=== PATIENT | female | born 1985 | race Caucasian/White ===

== ENCOUNTER 2016-06-27 10:02 | Emergency (ER) | payer BC ==
[2016-06-27] MEDS ORDERED: diPHENhydraMINE PO* 50 MG PO ONE (11:04)
[2016-06-27 11:35] VITALS: BP 106/62
--- NOTE | 2016-06-27 11:37 | ED ---
Skin Complaint - HPI Summary HPI Summary: Patient presents with concerns that she is having an allergic reaction. She noticed redness on her palms with mild itching this morning and then thought she felt like her "tonsils were swollen". She thinks that she sees blisters on her palms as well. She denies SOB, difficulty breathing, nausea or abdominal pain. She denies known exposure to new lotions, detergents, foods, soaps or cleansers. 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 - History of Current Complaint Chief Complaint: EDAllergicReaction Time Seen by Provider: 06/27/16 10:17 Stated Complaint: ALLERGIC REACTION Hx Obtained From: Patient Hx Last Menstrual Period: unknown Onset/Duration: Started Hours Ago Timing: Constant Onset Severity: Mild Current Severity: Mild Pain Intensity: 0 Skin Location: Hand - bilateral Character: Pruritus, Redness Aggravating Symptom(s): Nothing Alleviating Symptom(s): Nothing - Allergy/Home Medications Allergies/Adverse Reactions: Allergies Allergy/AdvReac Type Severity Reaction Status Date / Time No Known Allergies Allergy Verified 06/27/16 10:07 PMH/Surg Hx/FS Hx/Imm Hx Endocrine/Hematology History: Denies: Hx Diabetes, Hx Thyroid Disease Cardiovascular History: Denies: Hx Hypertension, Hx Pacemaker/ICD Respiratory History: Reports: Hx Seasonal Allergies Denies: Hx Asthma, Hx Chronic Obstructive Pulmonary Disease (COPD) GI History: Reports: Hx Irritable Bowel Denies: Hx Ulcer History: Denies: Hx Renal Disease Musculoskeletal History: Reports: Hx Back Problems - hx of chronic back pain Sensory History: Reports: Hx Contacts or Glasses Denies: Hx Hearing Aid Opthamlomology History: Reports: Hx Contacts or Glasses Neurological History: Reports: Hx Migraine Denies: Hx Dementia, Hx Seizures Psychiatric History: Reports: Hx Anxiety, Hx Depression, Hx Inpatient Treatment , Hx Community Mental Health Tx, Hx Suicide Attempt Denies: Hx Eating Disorder, Hx Panic Disorder, Hx of Violent Episodes Against Others, Hx Substance Abuse - Surgical History Surgery Procedure, Year, and Place: TUBES IN EARS CHILD. RIGHT HP SURGERY - TENDON ELONGATED & JOINT CLEANED-UP. 03/2013 explor lap - endometriosis diagnosed. Hysterectomy 03/15/14 Infectious Disease History: No Infectious Disease History: Denies: Hx Clostridium Difficile, Hx Hepatitis, Hx Human Immunodeficiency Virus (HIV), Hx of Known/Suspected MRSA, Hx Shingles, Hx Tuberculosis, Hx Known/ Suspected VRE, Hx Known/Suspected VRSA, History Other Infectious Disease, Traveled Outside the [place] in Last 30 Days - Family History Known Family History: Positive: Unknown, Cardiac Disease, Hypertension, Diabetes , Other - CHOLESTEROL - Social History Occupation: Employed Full-time Lives: Alone Alcohol Use: Rare Substance Use Type: Reports: None Substance Use Comment - Amount & Last Used: patient denies street drugs and marijuana use. percocet. Smoking Status (MU): Former Smoker Type: Cigarettes Amount Used/How Often: quit in 2011 Length of Time of Smoking/Using Tobacco: 6 years Have You Smoked in the Last Year: No Review of Systems Negative: Fever Negative: Erythema Negative: Chest Pain Negative: Shortness Of Breath Negative: Vomiting, Nausea Negative: Edema Negative: Rash, Bruising Negative: Headache, Weakness All Other Systems Reviewed And Are Negative: Yes Physical Exam Triage Information Reviewed: Yes Vital Signs On Initial Exam: Initial Vitals Temp Pulse Resp BP Pulse Ox 97.0 F 63 16 132/63 100 06/27/16 10:03 06/27/16 10:03 06/27/16 10:03 06/27/16 10:03 06/27/16 10:03 Vital Signs Reviewed: Yes Appearance: Positive: Well-Appearing, No Pain Distress, Obese Skin: Positive: Warm, Skin Color Reflects Adequate Perfusion, Dry, Soft, Erythema @ - minimal erythema noted on palms without hives, blisters, or streaking. Skin is completely intact. No other erythema noted. Head/Face: Positive: Normal Head/Face Inspection Eyes: Positive: EOMI, CHARLES, Conjunctiva Clear ENT: Positive: Hearing grossly normal, Pharynx normal - uvula is midline without edema; tonsils are symmetric without obvious edema and airway is open. Patient O2 saturation 100%. Patient is not in distress., TMs normal. Negative: Pharyngeal erythema, Tonsillar swelling Neck: Positive: Supple, Nontender, No Lymphadenopathy Respiratory/Lung Sounds: Positive: Clear to Auscultation, Breath Sounds Present Cardiovascular: Positive: RRR Musculoskeletal: Negative: Edema Left, Edema Right Neurological: Positive: Sensory/Motor Intact, Alert, Oriented to Person Place, Time, NV Bundle Intact Distally Psychiatric: Positive: Anxious AVPU Assessment: Alert - Ramsey Coma Scale Coma Scale Total: 15 Diagnostics - Vital Signs Vital Signs Temp Pulse Resp BP Pulse Ox 06/27/16 11:03 14 06/27/16 11:00 62 106/64 98 06/27/16 10:48 59 97 06/27/16 10:45 106/69 06/27/16 10:03 97.0 F 63 16 132/63 100 - Laboratory Lab Statement: Any lab studies that have been ordered have been reviewed, and results considered in the medical decision making process. Course/Dx - Differential Diagnoses - Skin Complaint Differential Diagnoses: Airway Obstruction, Allergic Reaction, Anaphylaxis, Angioedema, Local Allergic Reaction, Urticaria - Diagnoses Provider Diagnoses: Minor allergic reaction Discharge - Discharge Plan Condition: Stable Disposition: HOME Prescriptions: diPHENhydraMINE PO* [Benadryl PO 50 MG CAP*] 50 mg PO Q6H PRN #20 cap PRN Reason: Itching Patient Education Materials: Diphenhydramine (By mouth) Forms: *Work Release Referrals: Chery Andersen MD [Primary Care Provider] - Additional Instructions: Please use the Benadryl provided to help decrease your itching. Follow-up with your primary care provider in 1-2 days to discuss further treatment options or management.
== END 2016-06-27 11:35 | disposition home or self-care (01) ==
LOC: ED 10:02
DX: T78.40XA Allergy, unspecified, initial encounter (principal); X58.XXXA Exposure to other specified factors, initial encounter; Z87.891 Personal history of nicotine dependence
CPT/HCPCS: 99283; A9270-GY

== ENCOUNTER 2016-08-21 17:09 | Emergency (ER) | payer BC ==
[2016-08-21] MEDS ORDERED: predniSONE TAB* 20 MG PO ONE (18:44)
[2016-08-21] MEDS ORDERED: Albuterol 2.5 MG/3 ML NEB.SOL* (0.083%) INH ONE (18:44)
[2016-08-21 20:49] VITALS: BP 123/83
--- NOTE | 2016-08-21 21:34 | UC ---
Ramesh Ibarra Alok, scribed for Kimberly Nunez MD on 08/21/16 at 1845 . Shortness of Breath HPI - HPI Summary HPI Summary: 30F presents to the [facility] for an asthma attack today while at work. Pt states that what began as a chest tightness and cough this morning progressed into a tickle in her throat while at work. This tickle then progressed to SOB, chest pain, hoarseness, and a mucous sensation described as "frog in the throat" sensation. Pt has taken 8 puffs of her albuterol inhaler since her initial attack, but still reports chest tightness and SOB. Pt additionally notes wheezing yesterday while mowing her lawn for which she took her albuterol inhaler and Benadryl. 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 Pt denies sore throat, though notes that her co-worker was recently dx with strep. PMHx includes asthma. - History of Current Complaint Chief Complaint: UCRespiratory Stated Complaint: ASTHMA EXACERBATION Time Seen by Provider: 08/21/16 18:31 Hx Obtained From: Patient Hx Last Menstrual Period: Hysterectomy ?: No Onset/Duration: Gradual Onset, Lasting Hours, Still Present Timing: Constant Current Severity: Moderate Dyspnea At: Rest Aggrevating Factors: Allergens Alleviating Factors: Nothing Associated Signs & Symptoms: Positive: Cough (Nonproductive), Wheezing, Chest Pain Unrelated to Cough, Other - SOB, chest tightness, hoarseness - Risk Factors Pulmonary Embolism: Negative Cardiac: Negative Pseudomonas: Negative - Allergy/Home Medications Allergies/Adverse Reactions: Allergies Allergy/AdvReac Type Severity Reaction Status Date / Time No Known Allergies Allergy Verified 08/21/16 17:28 Home Medications: Home Medications Naproxen TAB* [Naprosyn 250 mg TAB*] 220 mg PO DAILY 08/21/16 [History Confirmed 08/21/16] Testosterone Cypionate 2.5 ml SUBCUT WEEKLY 08/21/16 [History Confirmed 08/21/16 ] Topiramate TAB(*) [Topamax 25 MG tab] 25 mg PO DAILY 08/21/16 [History Confirmed 08/21/16] PMH/Surg Hx/FS Hx/Imm Hx Endocrine History Of: Denies: Diabetes, Thyroid Disease Cardiovascular History Of: Denies: Cardiac Disorders, Hypertension, Pacemaker/ICD Respiratory History Of: Reports: Asthma Denies: COPD GI/ History Of: Denies: Gastroesophageal Reflux, Ulcer, Renal Disease Neurological History Of: Reports: Migraine Denies: CVA, Dementia, Seizures Psychological History Of: Reports: Anxiety, Depression - Surgical History Surgical History: None Surgery Procedure, Year, and Place: TUBES IN EARS CHILD. RIGHT HP SURGERY - TENDON ELONGATED & JOINT CLEANED-UP. 03/2013 explor lap - endometriosis diagnosed. Hysterectomy 03/15/14 - Family History Known Family History: Positive: Cardiac Disease, Hypertension, Diabetes, Other - CHOLESTEROL - Social History Occupation: Employed Full-time Alcohol Use: Rare Substance Use Type: None Substance Use Comment - Amount & Last Used: patient denies street drugs and marijuana use. percocet. Smoking Status (MU): Former Smoker Type: Cigarettes Amount Used/How Often: quit in 2011 Length of Time of Smoking/Using Tobacco: 6 years Have You Smoked in the Last Year: No When Did the Patient Quit Smoking/Using Tobacco: Quit March 2012 - Immunization History Most Recent Influenza Vaccination: NOT THIS YEAR Most Recent Tetanus Shot: UTD Most Recent Pneumonia Vaccination: N/A Review of Systems Constitutional: Negative ENT: Other - throat mucous, hoarseness Respiratory: Shortness Of Breath, Cough Cardiovascular: Chest Pain - /chest tightness Gastrointestinal: Negative Motor: Negative Neurovascular: Negative Musculoskeletal: Negative Neurological: Negative Psychological: Negative All Other Systems Reviewed And Are Negative: Yes Physical Exam Triage Information Reviewed: Yes Appearance: No Pain Distress, Well-Nourished, Ill-Appearing Vital Signs: Initial Vital Signs Temp 98.6 F 08/21/16 17:22 Pulse 91 08/21/16 17:22 Resp 18 08/21/16 17:22 BP 143/91 08/21/16 17:22 Pulse Ox 100 08/21/16 17:22 Elevated BP noted. Vital Signs Reviewed: Yes Eyes: Positive: Conjunctiva Clear ENT: Positive: Normal ENT inspection, Pharyngeal erythema, Nasal congestion, TMs normal, Muffled/hoarse voice Neck: Positive: Supple Respiratory: Positive: Decreased breath sounds, Other: - Very hoarse voice. Negative: Wheezing Cardiovascular: Positive: RRR, No Murmur, Pulses Normal, Brisk Capillary Refill Abdomen Description: Positive: Nontender, No Organomegaly, Soft Bowel Sounds: Positive: Present Musculoskeletal: Positive: Strength Intact, ROM Intact Neurological: Positive: Alert, Muscle Tone Normal Psychological Exam: Normal Skin Exam: Normal Shortness of Breath Dx - Course Course Of Treatment: High Blood pressure noted. Allergies noted. Pt medications reviewed at visit. Pt presented with SOB and hoareness following asthma attack unrelieved by her albuterol inhaler. Pt denies sore throat but notes co-worker with strep. Will give strep test and albuterol nebulizer treatment as well as prednisone. Strep Test Negative. - Differential Dx/Diagnosis Differential Diagnosis/HQI/PQRI: Asthma, Bronchitis, Pulmonary Embolism Provider Diagnoses: Elevated BP without dx of HTN. Asthma exacerbation. Discharge - Discharge Plan Condition: Stable Disposition: HOME Prescriptions: predniSONE TAB* [Deltasone TAB*] 40 mg PO DAILY #10 tab Patient Education Materials: Asthma (ED) Forms: *Gen. Provider Communication, *Work Release Referrals: Chery Andersen MD [Primary Care Provider] - Additional Instructions: Your strep test was negative. You were given a nebulized albuterol treatment and your first dose of prednisone. Start the prescribed prednisone tomorrow. Use your albuterol inhaler as directed. RETURN TO URGENT CARE or go to the Emergency Room FOR ANY NEW OR WORSENING SYMPTOMS The documentation as recorded by the Ramesh long Alok accurately reflects the service I personally performed and the decisions made by , Kimberly Nunez MD.
== END 2016-08-21 20:00 | disposition home or self-care (01) ==
LOC: UCEAST 17:09
DX: J45.901 Unspecified asthma with (acute) exacerbation (principal); G43.909 Migraine, unspecified, not intractable, without status migrainosus; R03.0 Elevated blood-pressure reading, without diagnosis of hypertension; Z87.891 Personal history of nicotine dependence
CPT/HCPCS: 87651; 99213; G0463; J7512

== ENCOUNTER 2017-05-12 16:08 | Emergency (ER) | payer BC ==
--- OUTSIDE RECORDS SUMMARY | 2017-05-12 17:00 | XMS REPORT ---
:1985 External Reference #:[id number] Author Organization [facility] Address [address] [address] Phone [phone] Care Team Providers Name Role Phone Other Physician Practices Primary Care Physician Unavailable Payers Type Date Identification Numbers Payment Provider Subscriber Commercial Policy Number: [id number] [employer] Teresita Akins PayID: [id number] [address] [address] [place] Carr[place] [address] Workers Compensation Onset: 2014 Policy Number: [facility] Keturah Akins [id number] PayID: [id number] [address] [place] [address] Medigap Part B Expires: 2010 Policy Number: [id number] Medicaid Keturah Akins Group Name: 1 1 [address] PayID: [id number] [place] [address] Medigap Part B Expires: 2016 Policy Number: Leandro Lo [id number] [facility] PayID: [id number] [address] [address] [place] Elliott [address] Problems Date Description Provider Status Onset: 05/28/2012 Sprain of hip Fadia Elder M.D. 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 Active Onset: 07/26/2014 Neck sprain Fadia Elder M.D. Active Onset: 07/26/2014 Chronic pain syndrome Fadia Elder M.D. Active Onset: 07/26/2014 Arthralgia of the pelvic region and Casimiro Tinajero M.D. Active thigh Onset: 07/26/2014 Vitamin D deficiency Fadia Elder M.D. Active Onset: 04/22/2017 Chronic migraine without aura Aaliyah Cagle MD Active Onset: 11/27/2016 Migraine without aura, not refractory Aaliyah Cagle MD Active Onset: 08/09/2016 Medication overuse headache Aaliyah Cagle MD Active Onset: 08/09/2016 Postconcussion syndrome Aaliyah Cagle MD Active Onset: 08/09/2016 Chronic intractable migraine without Aaliyah Cagle MD Active aura Family History Date Family Member(s) Problem(s) Comments General Diabetes Type II General Hypercholesterolemia General Hypertension Social History Type Date Description Comments Marital Status Lives With Female Partner 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 ed Cigarette Use Never Smoked Cigarettes ETOH Use Rarely consumes alcohol Smoking Patient is a former smoker Exercise Type/Frequency Does not exercise Allergies, Adverse Reactions, Alerts Date Description Reaction Status Severity Comments 05/19/2012 NKDA active Medications Medication Date Status Form Strength Qnty SIG Indications Ordering Provider Sumatriptan 04/22 Active Tablets 50mg 9tabs take 1 at G43.709 onset of MD Tsering migraine. may repeat within 2 hours if needed. max 2x/week. max daily dose 100mg Zonisamide 11/27 Active Capsules 50mg 90cap 3 caps by G43.71 s mouth at MD Tsering night. Omeprazole 10/25 Active Capsules 40mg 30cap [address] myers every day Marvin Elder. Lamictal Active Tablets 150mg 1 tab po Unknown /0000 qd Escitalopram Active Tablets 20mg 1 tab po Nygren, Oxalate /0000 qd MD Rayne Naproxen Sodium Active Capsules 220mg 2 tabs po Unknown /0000 bid as needed Trazodone HCL Active Tablets 50mg 1 by mouth Unknown /0000 every night at bedtime Testosterone 00 Active Injection 1 Unknown /0000 injection weekly Ventolin HFA Active Aerosol 108(90Bas prn Unknown /0000 e) mcg/Act Zyrtec Allergy Active Tablets 10mg 1 by mouth Unknown /0000 every day for the next 3-4 weeks, then as needed Topiramate 08/09 Hx Tablets 25mg 120ta 1 tablet G43.719 bs twice MD Tsering - daily 04/21 Sulfamethoxazole/ 07/08 Hx Tablets 800-160mg 10tab 1 tab by 788.64 Fadia Trimethoprim s mouth 2x Jerrod, - per day M.D. 10/24 Methadone HCL 06/14 Hx Tablets 5mg 15tab 1 by mouth 305.53 Fadia /2015 s once a day Jerrod, - in am and M.D. 07/08 mouth once pm Oxycodone-Acetami 05/19 Hx Tablets 10-325mg 42tab 1 tab by 789.00 Fadia nop s mouth Jerrod, - three M.D. 06/07 times day as needed Carisoprodol 05/19 Hx Tablets 350mg 60tab one by 847.2 Fadia /2015 s mouth at Jerrod, - night for M.D. 10/24 a Cyclobenzaprine 05/13 Hx Tablets 10mg 60tab one by 847.0 Fadia s mouth 2x Jerrod, - per day as M.D. 05/19 spasm Oxycodone-Acetami 04/14 Hx Tablets 5-325mg 28tab take 1 789.00 Fadia s tablets by Jerrod, - mouth M.D. 05/19 twice day. Oxycodone-Acetami 03/22 Hx Tablets 5-325mg 28tab take 1 789.00 Fadia nop s tablets by Jerrod, - mouth M.D. 04/14 every hours as needed pain Zofran 10/13 Hx Tablets 4mg 60tab 1 tab po s 2x a day Jerrod, - as needed M.D. 12/29 Flexeril 08/06 Hx Tablets 10mg 60tab 1 po at s bedtime Jerrod, - M.D. 08/06 Percocet 07/21 Hx Tablets 7.5-325mg 60tab 1 tab po s every 4 D. Bear, - hours as M.D.,FACP 08/21 Lexapro Hx Tablets 30mg 30tab 1 po qd s - 06/07 Zyprexa Hx Tablets 5mg 30tab 1 po qhs s - 06/07 Lamictal Hx Tablets 150mg 30tab 1 po qd Unknown / s - 09/30 Percocet Hx Tablets 5-325mg 60tab 1 po q bid Fadia /0000 s prn Juan Alan M.D. 07/21 Soma Hx Tablets 350mg 60tab 1 po bid Isha / s Juan Gilman M.D. 12/29 Vitamin D 2 Hx Capsules [id number] 8caps 1 tab po Unknown every week - 08/21 Vitamin D 3 Hx Tablets 2000Unit po qd Unknown / - 08/21 Percocet Hx Tablets 10-325mg 60tab 1 tab po Unknown / s bid - 03/22 Meloxicam Hx Tablets 7.5mg 60tab 1 po bid Fadia / s Juan Elder M.D. 03/22 Miralax Hx Powder [id number] 30 17 gm Fadia / s every day Juan Elder w/ 8 M.DEdi 07/30 water/juic e Cephalexin Hx Capsules 500mg 21cap 1 po qid Unknown / s - 01/05 Lyrica Hx Capsules 50mg 10cap 1 by mouth Unknown / s twice a - day 09/03 Flexeril Hx Tablets 10mg 60tab 1 by mouth Unknown / s three - times a 09/30 day needed Docqlace Hx Capsules 100mg 60cap 1 tab by Fadia / s shana Elder - twice a M.D. needed Topiramate Hx Tablets 25mg Fernandez, /0000 Ngoc Juan Soliman, 03/22 DNP, RN, WATER PUMPER-BC Iron (Ferrous Hx Tablets 256(28Fe) 180ta 1 by mouth Unknown Gluconate) /0000 mg bs every - other day 07/08 Ibuprofen Hx Tablets 800mg 90tab by mouth Unknown /0000 s three - times a 06/07 day needed Baclofen Hx Tablets 10mg 90tab 1/2 at hs Unknown /0000 s - 05/19 Zonisamide Hx Capsules 100mg 1 tab by Unknown /0000 mouth - every day 05/13 Tylenol Extra Hx Tablets 500mg 100ta 2 by mouth Unknown Strength /0000 bs as needed - 07/[address] 20mg 3 by mouth Unknown /0000 Part every day - 10/24 Vitamin D3 Hx Capsules 2000Unit 1 by mouth Unknown /0000 every day - 07/30 Methadone HCL Hx Tablets 5mg 14tab 1 by mouth Fadia / s twice a Elder, - day M.D. 06/14 Black Cohosh Hx tid with Unknown /0000 food - 07/08 Soy Isoflavones Hx Capsules 100mg 2 po qd Unknown / - 07/30 Suboxone Hx Film 8-2mg 1 film Unknown /0000 once daily - 10/24 Hydroxyzine HCL Hx Tablets 25mg Macadam, /0000 Brionna Stephens MD 07/30 Ibuprofen Hx Capsules 600mg as needed Unknown / - 07/30 Claritin 00 Hx Tablets 10mg once daily Unknown /0000 - 04/21 Immunizations CPT Code Status Date Vaccine Lot # [id number] Given 12/27/2012 Tdap - Tetanus/Diptheria/Acellular Pertussis Vital Signs Date Vital Result Comment 04/22/2017 Height 62 inches 5'2" Weight 198.12 lb Heart Rate 68 /min BP Systolic 124 mmHg BP Diastolic 78 mmHg BMI (Body Mass Index) 36.2 kg/m2 11/27/2016 Height 62 inches 5'2" Weight 207.00 lb Heart Rate 78 /min BP Systolic Sitting 128 mmHg BP Diastolic Sitting 80 mmHg BMI (Body Mass Index) 37.9 kg/m2 08/09/2016 Height 62 inches 5'2" Weight 199.00 lb Heart Rate 92 /min BP Systolic Sitting 128 mmHg BP Diastolic Sitting 84 mmHg Respiratory Rate 15 /min BMI (Body Mass Index) 36.4 kg/m2 10/25/2014 Weight 160.50 lb Heart Rate 98 /min BP Systolic Sitting 108 mmHg BP Diastolic Sitting 70 mmHg Pain Level 2 O2 % BldC Oximetry 98 % 07/08/2014 Weight 178.00 lb Heart Rate 98 /min BP Systolic Sitting 110 mmHg BP Diastolic Sitting 78 mmHg Body Temperature 98.5 F O2 % BldC Oximetry 99 % 06/21/2014 Weight 178.50 lb Heart Rate 98 /min BP Systolic Sitting 118 mmHg BP Diastolic Sitting 82 mmHg Body Temperature 98.1 F 06/14/2014 Weight 180.00 lb Heart Rate 78 /min BP Systolic Sitting 122 mmHg BP Diastolic Sitting 96 mmHg Body Temperature 98.4 F 06/07/2014 Height 63 inches 5'3" Weight 183.00 lb Heart Rate 82 /min BP Systolic Sitting 128 mmHg BP Diastolic Sitting 84 mmHg Body Temperature 98.6 F BMI (Body Mass Index) 32.4 kg/m2 05/19/2014 Weight 184.25 lb Heart Rate 116 /min BP Systolic Sitting 136 mmHg BP Diastolic Sitting 82 mmHg Body Temperature 99.0 F Pain Level 8 05/13/2014 Weight 184.75 lb Heart Rate 86 /min BP Systolic Sitting 120 mmHg BP Diastolic Sitting 76 mmHg Pain Level 8 O2 % BldC Oximetry 99 % 04/14/2014 Weight 180.00 lb Heart Rate 98 /min BP Systolic Sitting 118 mmHg BP Diastolic Sitting 82 mmHg Body Temperature 98.8 F Pain Level 6 pelvic floor 03/22/2014 Weight 179.50 lb Heart Rate 113 /min BP Systolic Sitting 124 mmHg BP Diastolic Sitting 88 mmHg Body Temperature 99.4 F Pain Level 6 O2 % BldC Oximetry 98 % 09/30/2013 Weight 181.00 lb Heart Rate 82 /min BP Systolic Sitting 130 mmHg BP Diastolic Sitting 80 mmHg 09/03/2013 Weight 178.00 lb Heart Rate 72 /min BP Systolic Sitting 122 mmHg BP Diastolic Sitting 80 mmHg Body Temperature 98.3 F 07/22/2013 Weight 177.00 lb Heart Rate 92 /min BP Systolic Sitting 118 mmHg BP Diastolic Sitting 64 mmHg Body Temperature 99.2 F 01/05/2013 Weight 158.00 lb Heart Rate 61 /min BP Systolic Sitting 116 mmHg BP Diastolic Sitting 82 mmHg 12/29/2012 Weight 150.00 lb Heart Rate 74 /min BP Systolic Sitting 110 mmHg BP Diastolic Sitting 55 mmHg 09/30/2012 Height 62 inches 5'2" Weight 149.00 lb Heart Rate 72 /min BP Systolic 116 mmHg BP Diastolic 72 mmHg Respiratory Rate 12 /min BMI (Body Mass Index) 27.2 kg/m2 08/21/2012 Weight 142.00 lb Heart Rate 70 /min BP Systolic Sitting 110 mmHg BP Diastolic Sitting 74 mmHg 07/16/2012 Weight 146.00 lb Heart Rate 74 /min BP Systolic Sitting 116 mmHg BP Diastolic Sitting 76 mmHg 06/25/2012 Height 88 inches 7'4" Weight 146.00 lb BP Systolic Sitting 100 mmHg BP Diastolic Sitting 80 mmHg BMI (Body Mass Index) 13.3 kg/m2 05/19/2012 Height 61.50 inches 5'1.50" Weight 142.00 lb Heart Rate 76 /min BP Systolic Sitting 104 mmHg BP Diastolic Sitting 70 mmHg BMI (Body Mass Index) 26.4 kg/m2 Results Test Date Test Result H/L Range Note Urine Culture And 07/08/2014 Urine Culture (SEE NOTE) 1 Sensitivities Ua Routine 07/08/2014 Ua Specific Damar 1.010 Ua PH 5 Ua Color dark yellow Ua Appera clear Ua WBC neg Ua Protein neg Ua Glucose neg Ua Ketones neg Ua Bilirubin small Ua Urobilinogen neg Ua Nitrite neg Ua Occult Blood neg CBC Auto Diff 05/30/2014 White Blood Count 9.9 10^3/uL 4.8-10.8 Red Blood Count 4.47 10^6/uL 4.0-5.4 Hemoglobin 13.3 g/dL 12.0-16.0 Hematocrit 40 % 35-47 Mean Corpuscular Volume 89 fL 80-97 Mean Corpuscular Hemoglobin 30 pg 27-31 Mean Corpuscular HGB Conc 34 g/dL 31-36 Red Cell Distribution Width 14 % 10.5-15 Platelet Count 281 10^3/uL 150-450 Mean Platelet Volume 8 um3 7.4-10.4 Abs Neutrophils 8.1 10^3/uL High 1.5-7.7 Abs Lymphocytes 1.3 10^3/uL 1.0-4.8 Abs Monocytes 0.5 10^3/uL 0-0.8 Abs Eosinophils 0 10^3/uL 0-0.6 Abs Basophils 0 10^3/uL 0-0.2 Abs Nucleated RBC 0 10^3/uL Granulocyte % 81.5 % 38-83 Lymphocyte % 12.9 % Low 25-47 Monocyte % 4.9 % 1-9 Eosinophil % 0.2 % 0-6 Basophil % 0.5 % 0-2 Nucleated Red Blood Cells % 0 Laboratory test finding 05/30/2014 Serum Negative Negative 2 Comp Metabolic Panel 05/30/2014 Sodium 137 mmol/L 133-145 Potassium 4.1 mmol/L 3.5-5.0 Chloride 107 mmol/L 101-111 Co2 Carbon Dioxide 21 mmol/L Low 22-32 Anion Gap 9 mmol/L 2-11 Glucose 132 mg/dL High 70-100 Blood Urea Nitrogen 11 mg/dL 6-24 Creatinine 0.77 mg/dL 0.51-0.95 BUN/Creatinine Ratio 14.3 8-20 Calcium 9.3 mg/dL 8.6-10.3 Total Protein 7.4 g/dL 6.4-8.9 Albumin 4.8 g/dL 3.2-5.2 Globulin 2.6 g/dL 2-4 Albumin/Globulin Ratio 1.8 1-3 Total Bilirubin 0.30 mg/dL 0.2-1.0 Alkaline Phosphatase 75 U/L 34-104 Alt 19 U/L 7-52 Ast 12 U/L Low 13-39 Egfr Non- 89.3 >60 Egfr 114.8 >60 3 Laboratory test finding 05/30/2014 Acetaminophen < 15 g/mL 4 Alcohol < 10 mg/dL <10 Salicylate < 2.50 mg/dL <30 TSH (Thyroid Stimulating Horm) 1.73 IU/mL 0.34-5.60 Urinalysis Profile 05/30/2014 Urine Color Yellow Urine Appearance Cloudy Urine Specific Damar 1.015 1.010-1.030 Urine pH 5.0 5-9 Urine Urobilinogen Negative Negative Urine Ketones Negative Negative Urine Protein Negative Negative Urine Leukocytes 2+ Negative Urine Blood Negative Negative Urine Nitrite Negative Negative Urine Bilirubin Negative Negative Urine Glucose Negative Negative Urine White Blood Cell 2+(11-20/hpf) Absent Urine Red Blood Cell Trace(0-2/hpf) Absent Urine Bacteria 1+ Absent Urine Squamous Epithelial Cell Present Absent Urine Drug SCR ED 05/30/2014 Amphetamine Ur Screen None Detected None Detect & [facility] Barbiturates Urine Screen None Detected None Detect Benzodiazepine Urine Screen None Detected None Detect Urine Cannabinoids Screen None Detected None Detect Urine Cocaine Screen None Detected None Detect Urine Opiates Screen None Detected None Detect Urine Phencyclidine Screen None Detected None Detect 5 Drug Abuse 20 Urine 04/14/2014 Urine Amphetamine Negative ng/mL 6 Urine Barbiturates Negative ng/mL 7 Urine Benzodiazepines Negative ng/mL 8 Urine Cocaine Negative ng/mL 9 Urine Methadone Negative ng/mL 10 Urine Opiates Negative ng/mL 11 Urine Phencyclidine Negative ng/mL Cutoff: 25 Urine Tetrahydrocannabinol Negative ng/mL Cutoff: 20 12 Urine Oxycodone Negative ng/mL 13 CBC With Manual Diff 08/26/2013 White Blood Count 7.2 10^3/uL 4.8-10.8 Red Blood Count 4.31 10^6/uL 4.0-5.4 Hemoglobin 12.5 g/dL 12.0-16.0 Hematocrit 37 % 35-47 Mean Corpuscular Volume 86 fL 80-97 Mean Corpuscular Hemoglobin 29 pg 27-31 Mean Corpuscular HGB Conc 34 g/dL 31-36 Red Cell Distribution Width 13 % 10.5-15 Platelet Count 259 10^3/uL 150-450 Mean Platelet Volume 9 um3 7.4-10.4 Abs Neutrophils 3.9 10^3/uL 1.5-7.7 Abs Lymphocytes 2.3 10^3/uL 1.0-4.8 Abs Monocytes 0.4 10^3/uL 0-0.8 Abs Eosinophils 0.5 10^3/uL 0-0.6 Abs Basophils 0 10^3/uL 0-0.2 Abs Nucleated RBC 0.01 10^3/uL Neutrophil % 50 % 38-83 Lymphocytes % 39 % 25-47 Monocytes % 7 % 0-13 Eosinophils % 3 % 0-6 Basophil % 1 % 0-2 RBC Morphology Normal Normal Laboratory test finding 08/26/2013 Erythrocyte Sed Rate 16 mm/Hr High 0- 14 Comp Metabolic Panel 08/26/2013 Sodium 140 mmol/L 133-145 Potassium 4.4 mmol/L 3.7-5.6 Chloride 106 mmol/L 101-111 Co2 Carbon Dioxide 28 mmol/L 22-32 Anion Gap 6 mmol/L 2-11 Glucose 99 mg/dL 70-100 Blood Urea Nitrogen 18 mg/dL 6-24 Creatinine 1.12 mg/dL High 0.51-0.95 BUN/Creatinine Ratio 16.1 8-20 Calcium 8.9 mg/dL 8.6-10.3 Total Protein 6.8 g/dL 6.4-8.9 Albumin 4.4 g/dL 3.2-5.2 Globulin 2.4 g/dL 2-4 Albumin/Globulin Ratio 1.8 1-3 Total Bilirubin 0.40 mg/dL 0.2-1.0 Alkaline Phosphatase 71 U/L 34-104 Alt 19 U/L 7-52 Ast 17 U/L 13-39 Egfr Non- 58.4 >60 Egfr 75.0 >60 14 CBC Auto Diff 03/29/2013 White Blood Count 6.8 10^3/uL 4.8-10.8 Red Blood Count 4.25 10^6/uL 4.0-5.4 Hemoglobin 12.6 g/dL 12.0-16.0 Hematocrit 37 % 35-47 Mean Corpuscular Volume 87 fL 80-97 Mean Corpuscular Hemoglobin 30 pg 27-31 Mean Corpuscular HGB Conc 34 g/dL 31-36 Red Cell Distribution Width 13 % 10.5-15 Platelet Count 225 10^3/uL 150-450 Mean Platelet Volume 9 um3 7.4-10.4 Abs Neutrophils 3.8 10^3/uL 1.5-7.7 Abs Lymphocytes 1.9 10^3/uL 1.0-4.8 Abs Monocytes 0.5 10^3/uL 0-0.8 Abs Eosinophils 0.5 10^3/uL 0-0.6 Abs Basophils 0.1 10^3/uL 0-0.2 Abs Nucleated RBC 0.01 10^3/uL Granulocyte % 56.7 % 38-83 Lymphocyte % 28.6 % 25-47 Monocyte % 7.0 % 1-9 Eosinophil % 6.8 % High 0-6 Basophil % 0.9 % 0-2 Nucleated Red Blood Cells % 0.1 Comp Metabolic Panel 03/29/2013 Sodium 136 mmol/L 133-145 Potassium 3.6 mmol/L 3.5-5.0 Chloride 107 mmol/L 101-111 Co2 Carbon Dioxide 22.0 mmol/L 22-32 Anion Gap 7.0 mmol/L 2-11 Glucose 112 mg/dL High 70-100 Blood Urea Nitrogen 10 mg/dL 6-24 Creatinine 0.70 mg/dL 0.50-1.40 BUN/Creatinine Ratio 14.3 8-20 Calcium 8.7 mg/dL 8.1-9.9 Total Protein 7.1 g/dL 6.2-8.1 Albumin 4.2 g/dL 3.6-5.4 Globulin 2.9 g/dL 2-4 Albumin/Globulin Ratio 1.4 1-3 Total Bilirubin 0.6 mg/dL 0.4-1.5 Alkaline Phosphatase 48 U/L 30-110 Alt 20 U/L 14-54 Ast 24 U/L 12-42 Egfr Non- 100.4 >60 Egfr 129.1 >60 15 Laboratory test 03/29/2013 C Reactive Protein < 0.5 mg/dL Less than 0.5 finding Urinalysis 03/29/2013 Urine Color Yellow Urine Appearance Clear Urine Specific Damar 1.004 Low 1.010-1.030 Urine Esterase Negative Negative Urine Nitrate Negative Negative Urine Urobilinogen Negative E.U./dL Negative Urine Protein Negative mg/dL Negative Urine pH 5.5 5-9 Urine Blood Negative Negative Urine Ketones Negative mg/dL Negative Urine Bilirubin Negative Negative Urine Glucose Negative mg/dL Negative Vitamin D, 25 Hydroxy 06/26/2012 25-Hydroxy Vitamin D2 27 ng/mL 25-Hydroxy Vitamin D3 34 ng/mL 25-Hydroxy Vitamin D Total 61 ng/mL 16 Drug Abuse 20 Urine 06/25/2012 Urine Amphetamine Negative ng/mL 17 Urine Barbiturates Negative ng/mL 18 Urine Benzodiazepines Negative ng/mL 19 Urine Cocaine Negative ng/mL 20 Urine Methadone Negative ng/mL 21 Urine Opiates Negative ng/mL 22 Urine Phencyclidine Negative ng/mL Cutoff: 25 Urine Propoxyphene Negative ng/mL 23 Urine Tetrahydrocannabinol Negative ng/mL Cutoff: 20 24 Creatinine 22.8 mg/dL Specific Damar 1.003 pH 5.8 Oxidants Negative 25 Urine Opiates Screen Negative 26 Urine Codeine Confirmation Negative ng/mL 27 Urine Hydrocodone Confirm Negative ng/mL 28 Urine Hydromorphone Confirm Negative ng/mL 29 Urine Morphine Confirm Negative ng/mL 30 Urine Oxycodone Confirm 187 ng/mL 31 Urine Opiates Interpretation See Comment 32 1 RUN DATE: 07/10/14 [facility] LAB LIVE PAGE 1 RUN TIME: [address] [place], [place] [address] Specimen Inquiry Name: KETURAH WATSON : [address]: Fadia Elder MD Acct: [id number] Unit: [id number] AGE: 28 Location: [facility] Re07/08/14 SEX: F Status: REG REF SPEC: [id number] JOSIANE: 07/08/14-[address]: Fadia Elder MD REQ: [id number] RECD: 07/08/14 STATUS: COMP _ SOURCE: URINE SPDESC: ORDERED: Urine Culture QUERIES: Provider Requisition # [id number] Procedure Result Verified Site Urine Culture Final 07/10/14- 928 ML No Growth Day 2 (<1,000 CFU/mL) * ML - MAIN LAB ([facility]) . END OF REPORT * ML=Testing performed at Main Lab DEPARTMENT OF PATHOLOGY, [address] [place] [address] Roger Flores M.D. Director [facility] # [id number] 2 This test detects intact HCG only and is indicated for the early detection of . 3 Because ethnic data is not always readily available, this report includes an eGFR for both -Americans and non- Americans. The National Kidney Disease Education Program (NKDEP) does not endorse the use of the MDRD equation for patients that are not between the ages of 18 and 70, are , have extremes of body size, muscle mass, or nutritional status, or are non- or non-. According to the National Kidney Foundation, irrespective of diagnosis, the stage of the disease is based on the level of kidney function: Stage Description GFR(mL/min/1.73 m(2)) 1 Kidney damage with normal or decreased GFR 90 2 Kidney damage with mild decrease in GFR 60-89 3 Moderate decrease in GFR 30-59 4 Severe decrease in GFR 15-29 5 Kidney failure <15 (or dialysis) 4 Therapeutic concentration: <50 ug/mL Toxic concentration: >120 ug/mL 5 The urine specimen was tested at the listed cutoffs: Drug class test level (ng/mL) Amphetamines 500 Barbituates 200 Benzodiazepine metabolites 200 Cocaine metabolites 150 Cannabinoids 50 Opiates 300 Pcp 25 This is a screening procedure. Positive results are not confirmed. Specimen was received without chain of custody. Results should be used for medical purposes only. 6 REFERENCE VALUE Cutoff: 500 7 REFERENCE VALUE Cutoff: 200 8 REFERENCE VALUE Cutoff: 200 9 REFERENCE VALUE Cutoff: 150 10 REFERENCE VALUE Cutoff: 150 11 REFERENCE VALUE Cutoff: 300 12 ADDITIONAL INFORMATION This report is intended for use in clinical monitoring or management of patients. It is not intended for use in employment-related testing. 13 REFERENCE VALUE Cutoff: 100 ADDITIONAL INFORMATION This report is intended for use in clinical monitoring or management of patients. It is not intended for use in employment-related testing. Test Performed by: [facility] - [address] [address] Customer Retention Representative: Rico Nunn M.D. 14 Because ethnic data is not always readily available, this report includes an eGFR for both -Americans and non- Americans. The National Kidney Disease Education Program (NKDEP) does not endorse the use of the MDRD equation for patients that are not between the ages of 18 and 70, are , have extremes of body size, muscle mass, or nutritional status, or are non- or non-. According to the National Kidney Foundation, irrespective of diagnosis, the stage of the disease is based on the level of kidney function: Stage Description GFR(mL/min/1.73 m(2)) 1 Kidney damage with normal or decreased GFR 90 2 Kidney damage with mild decrease in GFR 60-89 3 Moderate decrease in GFR 30-59 4 Severe decrease in GFR 15-29 5 Kidney failure <15 (or dialysis) 15 Because ethnic data is not always readily available, this report includes an eGFR for both -Americans and non- Americans. The National Kidney Disease Education Program (NKDEP) does not endorse the use of the MDRD equation for patients that are not between the ages of 18 and 70, are , have extremes of body size, muscle mass, or nutritional status, or are non- or non-. According to the National Kidney Foundation, irrespective of diagnosis, the stage of the disease is based on the level of kidney function: Stage Description GFR(mL/min/1.73 m(2)) 1 Kidney damage with normal or decreased GFR 90 2 Kidney damage with mild decrease in GFR 60-89 3 Moderate decrease in GFR 30-59 4 Severe decrease in GFR 15-29 5 Kidney failure <15 (or dialysis) 16 -- REFERENCE VALUE -- 25-HYDROXY D TOTAL (D2+D3) Optimum levels in the normal population are 25-80 Test Performed by: [address] [address] Customer Retention Representative: Jamarcus Chavez III, M.D. 17 -- REFERENCE VALUE -- Cutoff: 500 18 -- REFERENCE VALUE -- Cutoff: 200 19 -- REFERENCE VALUE -- Cutoff: 200 20 -- REFERENCE VALUE -- Cutoff: 150 21 -- REFERENCE VALUE -- Cutoff: 300 22 -- REFERENCE VALUE -- Cutoff: 300 23 -- REFERENCE VALUE -- Cutoff: 300 24 This report is intended for use in clinical monitoring or management of patients. It is not intended for use in employment-related testing. 25 Test Performed by: [address] [address] Customer Retention Representative: Jamarcus Chavez III, M.D. 26 -- REFERENCE VALUE -- Cutoff: 300 27 -- REFERENCE VALUE -- Cutoff: 100 28 -- REFERENCE VALUE -- Cutoff: 100 29 -- REFERENCE VALUE -- Cutoff: 100 30 -- REFERENCE VALUE -- Cutoff: 100 31 -- REFERENCE VALUE -- Cutoff: 100 32 Positive. Discrepancy noted between immunoassay result and GC/MS result. The GC/MS result is the definitive result. This report is intended for use in clinical monitoring and management of patients. It is not intended for use in employment-related testing. Test Performed by: [address] [address] Customer Retention Representative: Jamarcus Chavez III, M.D. Procedures Date CPT Code Description Status 06/03/2014 97002 EKG, Interpretation Only Completed Encounters Type Date Location Provider CPT E/M Dx Office Visit 11/27/2016 [facility] [address] G43.719 11:30a Office Visit 08/09/2016 [facility] [place] [address] G43.719 1:00p Of [facility] G44.40 F07.81 Office Visit 10/25/2014 10:40a [facility] Internal Medicine Fadia Elder M.D. 00542 305.53 - [place] 535.00 338.4 Office Visit 07/08/2014 2:40p [facility] Internal Medicine Fadia Elder M.D. 20125 788.64 - [place] Office Visit 06/21/2014 11:00a [facility] Internal Medicine Fadia Elder M.D. 06093 305.53 - [place] Office Visit 06/14/2014 10:40a [facility] Internal Medicine Fadia Elder M.D. 75784 305.53 - [place] Office Visit 06/07/2014 3:40p [facility] Internal Medicine Fadia Elder M.D. 84773 305.53 - [place] Office Visit 05/19/2014 11:20a [facility] Internal Carmelita Elder M.D. 06590 847.2 - [place] 847.0 338.4 E819.9 Office Visit 05/13/2014 12:40p [facility] Internal Medicine Fadia Elder M.D. 98424 847.2 - [place] 847.0 847.1 338.4 728.85 [id number] Office Visit 04/14/2014 9:40a [facility] Fadia Elder M.D. [id number] 338.4 - [place] 728.3 Office Visit 03/22/2014 2:40p [facility] Fadia Elder M.D. 60475 789.00 - [place] Office Visit 09/30/2013 4:00p [facility] Fadia Elder M.D. 76072 789.00 - [place] Office Visit 09/03/2013 2:50p [facility] Fadia Elder M.D. [id number] 789.00 - [place] Office Visit 07/22/2013 3:40p [facility] Internal Carmelita Elder M.D. 86082 783.1 - [place] Office Visit 01/05/2013 11:40a [facility] Fadia Elder M.D. 82979 959.4 - [place] Office Visit 12/29/2012 11:00a [facility] Internal Carmelita Elder M.D. [id number] 959.4 - [place] Office Visit 09/30/2012 2:00p [facility] Casimiro Tinajero, 04363 719.45 Services Of [facility] [place] Office Visit 08/21/2012 2:20p [facility] Fadia Elder M.D. 68928 843.8 - [place] Office Visit 07/16/2012 8:40a [facility] Internal Carmelita Elder M.D. 23538 843.8 - [place] Office Visit 06/25/2012 3:00p [facility] Fadia Elder M.D. 23354 843.8 - [place] 268.9 Office Visit 05/19/2012 11:20a [facility] Fadia Elder M.D. 83737 843.8 - [place] Plan of Care Future Appointment(s):07/29/2017 10:00 am - [facility] - Aaliyah Cagle [id number] Chronic migraine w/o aura, not intractable, w/o stat migrNew Medication:Sumatriptan Succinate 50 mgFollow up:: 3 MONTHSRecommendations:try sumatriptan for a migraine as early as you can when you know it will be a migraine. If one tablet at the onset does not work well enough but you tolerate it ok, for the next migraine you can try 2 tablets at once (100mg). we talked about the possibility of serotonin syndrome because you also takeescitalopram but this is highly unlikely to happen. continue zonisamide at the current dose for now. If things remains stable we can think about reducing this medication at the next visit.F07.81 Postconcussional syndrome
[2017-05-12 17:30] VITALS: BP 126/71
--- NOTE | 2017-05-12 18:42 | ED ---
Throat Pain/Nasal Congestion - HPI Summary HPI Summary: 31 yr old with complaint of bilateral ear pain, continued sinus congestion and chest congestion and coughing. She was on augmentin after maria d shortly, and also on tamiflu early Mar due to others having influenza in family. She has persistent coughing, and she even has had a negative chest xray recently by her PMD. She denies SOB. - History of Current Complaint Chief Complaint: UCGeneralIllness Time Seen by Provider: 05/12/17 18:30 - Allergies/Home Medications Allergies/Adverse Reactions: Allergies Allergy/AdvReac Type Severity Reaction Status Date / Time No Known Allergies Allergy Verified 05/12/17 17:16 Home Medications: Home Medications Levocetirizine Dihydrochloride [Xyzal Allergy 24Hr] 5 mg PO DAILY 05/12/17 [ History Confirmed 05/12/17] Zonisamide 150 mg PO BEDTIME 05/12/17 [History Confirmed 05/12/17] PMH/Surg Hx/FS Hx/Imm Hx Endocrine/Hematology History: Denies: Hx Diabetes, Hx Thyroid Disease Cardiovascular History: Denies: Hx Hypertension, Hx Pacemaker/ICD Respiratory History: Reports: Hx Asthma, Hx Seasonal Allergies Denies: Hx Chronic Obstructive Pulmonary Disease (COPD) GI History: Reports: Hx Irritable Bowel Denies: Hx Ulcer History: Denies: Hx Renal Disease Musculoskeletal History: Reports: Hx Back Problems - hx of chronic back pain Sensory History: Reports: Hx Contacts or Glasses Denies: Hx Hearing Aid Opthamlomology History: Reports: Hx Contacts or Glasses Neurological History: Reports: Hx Migraine Denies: Hx Dementia, Hx Seizures Psychiatric History: Reports: Hx Anxiety, Hx Depression, Hx Inpatient Treatment , Hx Community Mental Health Tx, Hx Suicide Attempt Denies: Hx Eating Disorder, Hx Panic Disorder, Hx of Violent Episodes Against Others, Hx Substance Abuse - Surgical History Surgery Procedure, Year, and Place: TUBES IN EARS CHILD. RIGHT HP SURGERY - TENDON ELONGATED & JOINT CLEANED-UP. 03/2013 explor lap - endometriosis diagnosed. Hysterectomy 03/15/14 Infectious Disease History: No Infectious Disease History: Denies: Hx Clostridium Difficile, Hx Hepatitis, Hx Human Immunodeficiency Virus (HIV), Hx of Known/Suspected MRSA, Hx Shingles, Hx Tuberculosis, Hx Known/ Suspected VRE, Hx Known/Suspected VRSA, History Other Infectious Disease, Traveled Outside the [place] in Last 30 Days - Family History Known Family History: Positive: Unknown, Cardiac Disease, Hypertension, Diabetes , Other - CHOLESTEROL - Social History Alcohol Use: Rare Substance Use Type: Reports: None Substance Use Comment - Amount & Last Used: patient denies street drugs and marijuana use. percocet. Smoking Status (MU): Former Smoker Type: Cigarettes Amount Used/How Often: quit in 2011 Length of Time of Smoking/Using Tobacco: 6 years Have You Smoked in the Last Year: No Review of Systems Positive: Fever, Chills Positive: Ear Ache, Nasal Discharge Positive: Cough All Other Systems Reviewed And Are Negative: Yes Physical Exam Triage Information Reviewed: Yes Vital Signs On Initial Exam: Initial Vitals Temp Pulse Resp BP Pulse Ox 98.6 F 61 16 126/71 100 05/12/17 17:23 18 17:23 18 17:23 18 17:23 18 17:23 Vital Signs Reviewed: Yes Appearance: Positive: Well-Appearing, No Pain Distress Skin: Positive: Warm, Skin Color Reflects Adequate Perfusion Head/Face: Positive: Normal Head/Face Inspection Eyes: Positive: EOMI ENT: Positive: Nasal congestion, TM red - right with effusion Neck: Positive: Nontender Respiratory/Lung Sounds: Positive: Clear to Auscultation, Breath Sounds Present Cardiovascular: Positive: RRR. Negative: Murmur Abdomen Description: Positive: Nontender Musculoskeletal: Positive: Strength/ROM Intact Neurological: Positive: Sensory/Motor Intact, Alert, Oriented to Person Place, Time, CN Intact II-III Psychiatric: Positive: Normal - [place] Coma Scale Best Eye Response: 4 - Spontaneous Best Motor Response: 6 - Obeys Commands Best Verbal Response: 5 - Oriented Coma Scale Total: 15 Diagnostics - Vital Signs Vital Signs Temp Pulse Resp BP Pulse Ox 05/12/17 17:23 98.6 F 61 16 126/71 100 - Laboratory Lab Statement: Any lab studies that have been ordered have been reviewed, and results considered in the medical decision making process. EENT Course/Dx - Course Course Of Treatment: 31 yr old female with right otitis media. Plan Rx with Augmentin. DC home. - Diagnoses Provider Diagnoses: Otitis media Discharge - Discharge Plan Condition: Good Disposition: HOME Prescriptions: Amoxicillin/Clavulanate TAB* [Augmentin TAB 875*] 875 mg PO BID #20 tab Benzonatate CAP* [Tessalon 100 MG CAP*] 100 mg PO TID #14 cap Patient Education Materials: Ear Infection (ED), Upper Respiratory Infection ( ED) Referrals: Chery Andersen MD [Primary Care Provider] -
== END 2017-05-12 18:55 | disposition home or self-care (01) ==
LOC: UCCORT 16:08
DX: H66.91 Otitis media, unspecified, right ear (principal); Z87.891 Personal history of nicotine dependence
CPT/HCPCS: 99212; G0463

== ENCOUNTER 2017-06-26 16:54 | Emergency (ER) | payer BC ==
[2017-06-26 17:47] VITALS: BP 112/69
--- NOTE | 2017-06-26 19:03 | UC ---
Abdominal Pain Female HPI - HPI Summary HPI Summary: nausea diarrhea for 1 day, pt is concerned because stool is black - History of Current Complaint Chief Complaint: UCAbdominalPain Stated Complaint: DIARRHEA Time Seen by Provider: 06/26/17 18:47 Hx Obtained From: Patient Hx Last Menstrual Period: hysterectomy ?: No Onset/Duration: Sudden Onset Timing: Constant Severity Initially: Mild Severity Currently: Mild Pain Intensity: 2 Pain Scale Used: 0-10 Numeric Location: Diffuse Radiates: No Aggravating Factor(s): Nothing Alleviating Factor(s): Other: - has tried pepto-- Associated Signs and Symptoms: Positive: Nausea, Vomiting, Diarrhea Allergies/Adverse Reactions: Allergies Allergy/AdvReac Type Severity Reaction Status Date / Time No Known Allergies Allergy Verified 05/12/17 17:16 Home Medications: Home Medications Prochlorperazine TAB* [Compazine Tab*] 06/26/17 [History] PMH/Surg Hx/FS Hx/Imm Hx Previously Healthy: No GI/ History: Gastroesophageal Reflux Psychological History: Depression - Surgical History Surgical History: None Surgery Procedure, Year, and Place: TUBES IN EARS CHILD. RIGHT HP SURGERY - TENDON ELONGATED & JOINT CLEANED-UP. 03/2013 explor lap - endometriosis diagnosed. Hysterectomy 03/15/14 - Family History Known Family History: Positive: Unknown, Cardiac Disease, Hypertension, Diabetes , Other - CHOLESTEROL - Social History Occupation: Employed Full-time Lives: With Family Alcohol Use: Rare Substance Use Type: None Substance Use Comment - Amount & Last Used: patient denies street drugs and marijuana use. percocet. Smoking Status (MU): Former Smoker Type: Cigarettes Amount Used/How Often: quit in 2011 Length of Time of Smoking/Using Tobacco: 6 years Have You Smoked in the Last Year: No When Did the Patient Quit Smoking/Using Tobacco: Quit March 2012 - Immunization History Most Recent Influenza Vaccination: NOT THIS YEAR Most Recent Tetanus Shot: UTD Most Recent Pneumonia Vaccination: N/A Review of Systems Constitutional: Negative Skin: Negative Eyes: Negative ENT: Negative Respiratory: Negative Cardiovascular: Negative Gastrointestinal: Abdominal Pain, Vomiting, Diarrhea, Nausea Genitourinary: Negative Motor: Negative Neurovascular: Negative Musculoskeletal: Negative Neurological: Negative Psychological: Negative Is Patient Immunocompromised?: No All Other Systems Reviewed And Are Negative: Yes Physical Exam Triage Information Reviewed: Yes Appearance: Well-Appearing, No Pain Distress, Well-Nourished Vital Signs: Initial Vital Signs Temp 99.4 F 06/26/17 17:42 Pulse 73 06/26/17 17:42 Resp 16 06/26/17 17:42 BP 112/69 06/26/17 17:42 Pulse Ox 99 06/26/17 17:42 Vital Signs Reviewed: Yes Eye Exam: Normal Eyes: Positive: Conjunctiva Clear ENT Exam: Normal ENT: Positive: Normal ENT inspection, Hearing grossly normal, Pharynx normal, TMs normal. Negative: Trismus, Muffled voice, Hoarse voice Dental Exam: Normal Neck exam: Normal Neck: Positive: Supple, Nontender, No Lymphadenopathy Respiratory Exam: Normal Respiratory: Positive: Chest non-tender, Lungs clear, Normal breath sounds, No respiratory distress, No accessory muscle use Cardiovascular Exam: Normal Cardiovascular: Positive: RRR, No Murmur, Pulses Normal, Brisk Capillary Refill Abdominal Exam: Normal Abdomen Description: Positive: No Organomegaly, Soft, Other: - diffuse discomfort--rectal exam done---soft stool noted---black but guiac negative. Negative: Nontender Bowel Sounds: Positive: Present Musculoskeletal Exam: Normal Musculoskeletal: Positive: Strength Intact, ROM Intact, No Edema Neurological Exam: Normal Neurological: Positive: Alert, Muscle Tone Normal Psychological Exam: Normal Psychological: Positive: Normal Response To Family Skin Exam: Normal Abd Pain Female Course/Dx - Course Course Of Treatment: rest increase fluids, tylenol, ibuprofen prn follow with pcp return to regular diet slowly - Differential Dx/Diagnosis Provider Diagnoses: acute nausea, vomiting, diarrhea Discharge - Sign-Out/Discharge Documenting (check all that apply): Discharge - Discharge Plan Condition: Fair Disposition: HOME Patient Education Materials: Clear Liquid Diet (ED), Acute Nausea and Vomiting (ED), Acute Diarrhea (ED), Nutrition Tips for Relief of Diarrhea (ED) Referrals: Chery Andersen MD [Primary Care Provider] - 2 Days - Billing Disposition and Condition Condition: FAIR Disposition: HOME
--- NOTE | 2017-06-28 14:49 | UC ---
- Progress Note Progress Note: Urine culture with no growth. The visit note is not completed at the time of this lab review. It appears that pt was seen for diarrhea related complaints and was advised a clear liquid diet advancing as tolerated. No change at this time in regards to urine. Discharge - Sign-Out/Discharge Documenting (check all that apply): Post-Discharge Follow Up - Discharge Plan Condition: Fair Disposition: HOME Patient Education Materials: Clear Liquid Diet (ED), Acute Nausea and Vomiting (ED), Acute Diarrhea (ED), Nutrition Tips for Relief of Diarrhea (ED) Referrals: Chery Andersen MD [Primary Care Provider] - 2 Days - Billing Disposition and Condition Condition: FAIR Disposition: HOME
== END 2017-06-26 20:00 | disposition home or self-care (01) ==
LOC: UCEAST 16:54
DX: R11.2 Nausea with vomiting, unspecified (principal); R19.7 Diarrhea, unspecified; R10.84 Generalized abdominal pain; K21.9 Gastro-esophageal reflux disease without esophagitis; F32.9 Major depressive disorder, single episode, unspecified; Z87.891 Personal history of nicotine dependence
CPT/HCPCS: 81003; 87086; 99211; G0463

== ENCOUNTER 2018-04-02 15:57 | Emergency (ER) | payer BC ==
[2018-04-02 16:44] VITALS: BP 116/64
--- NOTE | 2018-04-02 16:49 | UC ---
Respiratory Complaint HPI - HPI Summary HPI Summary: 32 yo female to male presents with sinus pain/pressure/congestion and intermittently productive cough for the last week. Has been taking nyquill, mucinex, and sudafed with no relief. Today noticed tinges of blood in the sputum coughed. Hx of asthma, but has been breathing fine. Denies fever, chills , sore throat, SOB, chest pain. - History of Current Complaint Chief Complaint: UCRespiratory Stated Complaint: SINUS AND CHEST CONGESTION Time Seen by Provider: 04/02/18 16:48 Hx Obtained From: Patient Onset/Duration: Gradual Onset Severity Currently: None Pain Intensity: 0 Pain Scale Used: 0-10 Numeric Character: Cough: Productive - Allergies/Home Medications Allergies/Adverse Reactions: Allergies Allergy/AdvReac Type Severity Reaction Status Date / Time No Known Allergies Allergy Verified 04/02/18 16:45 Home Medications: Home Medications B2/Vits A,C,E/Lut/Zeaxanth/Min [Icaps Tablet] 1 each PO 04/02/18 [History] Fremanezumab-Vfrm [Ajovy] 225 mg SQ MONTHLY 04/02/18 [History Confirmed 04/02/18 ] Verapamil HCl 80 mg PO DAILY WITH MEAL 04/02/18 [History Confirmed 04/02/18] PMH/Surg Hx/FS Hx/Imm Hx Cardiovascular History: Hypertension GI/ History: Gastroesophageal Reflux Psychological History: Bipolar Disorder - Surgical History Surgical History: Yes Surgery Procedure, Year, and Place: TUBES IN EARS CHILD. RIGHT HIP SURGERY - TENDON ELONGATED & JOINT CLEANED-UP. 03/2013 explor lap - endometriosis diagnosed. Hysterectomy 03/15/14. TUBE IN RIGHT EAR DEC 2017 - Family History Known Family History: Positive: Cardiac Disease, Hypertension, Diabetes, Other - CHOLESTEROL - Social History Occupation: Student Lives: With Family Alcohol Use: Rare Substance Use Type: None Substance Use Comment - Amount & Last Used: patient denies street drugs and marijuana use. percocet. Smoking Status (MU): Former Smoker Type: Cigarettes Amount Used/How Often: quit in 2011 Length of Time of Smoking/Using Tobacco: 6 years Have You Smoked in the Last Year: No When Did the Patient Quit Smoking/Using Tobacco: Quit March 2012 - Immunization History Most Recent Influenza Vaccination: NOT THIS YEAR Most Recent Tetanus Shot: UTD Most Recent Pneumonia Vaccination: N/A Review of Systems All Other Systems Reviewed And Are Negative: Yes Constitutional: Positive: Negative Skin: Positive: Negative Eyes: Positive: Negative ENT: Positive: Nasal Discharge, Sinus Congestion, Sinus Pain/Tenderness Respiratory: Positive: Cough Cardiovascular: Positive: Negative Gastrointestinal: Positive: Negative Neurological: Positive: Negative Psychological: Positive: Negative Physical Exam - Summary Physical Exam Summary: GENERAL: NAD. WDWN. No pain distress. SKIN: No rashes, sores, lesions, or open wounds. HEENT: Head: AT/NC Eyes: EOM intact. Conjunctiva clear without inflammation or discharge. Ears: Hearing grossly normal. TMs intact, no bulging, erythema, or edema. Nose: Nasal mucosa mildly swollen and erythematous without discharge. TTP maxillary > frontal sinus. Positive post nasal drip Throat: Posterior oropharynx without exudates, erythema, or tonsillar enlargement. Uvula midline. NECK: Supple. Nontender. No lymphadenopathy. CHEST: CTAB. No r/r/w. No accessory muscle use. Breathing comfortably and in no distress. CV: RRR. Without m/r/g. Pulses intact. NEURO: Alert. PSYCH: Age appropriate behavior. Triage Information Reviewed: Yes Vital Signs: Initial Vital Signs Temp 100.1 F 04/02/18 16:41 Pulse 71 04/02/18 16:41 Resp 18 04/02/18 16:41 BP 116/64 04/02/18 16:41 Pulse Ox 100 04/02/18 16:41 Vital Signs Reviewed: Yes Diagnostic Evaluation - Laboratory O2 Sat by Pulse Oximetry: 100 Respiratory Course/Dx - Course Course Of Treatment: Sinusitis. Cough. - Differential Dx/Diagnosis Provider Diagnosis: Sinusitis Discharge - Sign-Out/Discharge Documenting (check all that apply): Patient Departure All imaging exams completed and their final reports reviewed: No Studies - Discharge Plan Condition: Stable Disposition: HOME Prescriptions: Azithromycin TAB* [Zithromax TAB (Z-HAROLDO) 250 mg #6 tabs] 2 tab PO .TODAY, THEN 1 DAILY #1 haroldo Codeine Phosphate/Guaifenesin [Guaifen-Codeine 100-10 mg/5 ml] 5 ml PO BEDTIME PRN #35 ml MDD 5mL PRN Reason: Cough Patient Education Materials: Sinusitis (ED), Acute Bronchitis (ED) Referrals: Chery Andersen MD [Primary Care Provider] - Additional Instructions: If you develop a fever, shortness of breath, chest pain, new or worsening symptoms - please call your PCP or go to the ED. - Billing Disposition and Condition Condition: STABLE Disposition: Home
== END 2018-04-02 17:17 | disposition home or self-care (01) ==
LOC: UCEAST 15:57
DX: J32.9 Chronic sinusitis, unspecified (principal); I10 Essential (primary) hypertension; Z87.891 Personal history of nicotine dependence
CPT/HCPCS: 99212; G0463

== ENCOUNTER 2018-05-25 17:33 | Emergency (ER) | payer BC ==
--- OUTSIDE RECORDS SUMMARY | 2018-05-25 17:45 | XMS REPORT | Continuity of Care Document ---
:1985 External Reference #:[id number] Author Name Magali Robles Care Team Providers Name Role Phone Chery Andersen MD Primary Care Physician Unavailable Payers Date Identification Numbers Payment Provider Subscriber Effective: 2017 Policy Number: [id number] [employer] Teresita Akins PayID: [id number] [address] [address] [place] [address] Onset: 2014 Policy Number: [id number] [facility] Keturah Akins PayID: [id number] [address] [place] [address] Expires: 2010 Policy Number: [id number] Medicaid Keturah Akins Group Name: 1 1 [address] PayID: [id number] [place] [address] Expires: 2016 Policy Number: [id number] [facility] Teresita Akins PayID: [id number] [address] [address] [place] [address] Advance Directives Description No Information Available Problems Date Description Provider Status Onset: 05/28/2012 [...] D deficiency Fadia Elder M.D. Active Onset: 08/09/2016 Chronic intractable migraine without Aaliyah Cagle MD Active aura Onset: 08/09/2016 Postconcussion syndrome Aaliyah Cagle MD Active Onset: 08/09/2016 Medication overuse headache Aaliyah Cagle MD Active Onset: 11/27/2016 Migraine without aura, not refractory Aaliyah Cagle MD Active Onset: 04/22/2017 Chronic migraine without aura Aaliyah Cagle MD Active Family History Date Family Member(s) Observation Comments General Diabetes Type II General Hypercholesterolemia General Hypertension Social History Type Date Description Comments Sex Female Marital Status Lives With Female Partner 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 [employer] Hand Dominance Right-handed Tobacco Use Start: Unknown Never Smoked Cigarettes Smoking Status Reviewed: 05/21/18 Never Smoked Cigarettes ETOH Use Rarely consumes alcohol Tobacco Use Start: Unknown End: Patient is a former smoker Unknown Recreational Drug Use Denies Drug Use Exercise Type/Frequency Does not exercise Allergies, Adverse Reactions, Alerts Description No Known Drug Allergies Medications Medication Date Status Form Strength Qnty SIG Indications Ordering Provider Zonisamide 02/18 Active Capsules 50mg 150ca take 3 G4 ps tablets Rcio Dey at bedtime Ajovy 02/18 Active Soln 225mg/1.5 1unit inject Prefill ML s once a Rico Dey Syringe month Bin# [id number] PCN# CN GRP# [id number] Id# [id number] Verapamil HCL 01/01 Active Tablets 40mg 60tab 1 by G43 s mouth Rico Dey twice a day Sumatriptan 04/22 Active Tablets 50mg 9tabs take 1 at G4 onset of Rico Dey migraine. may repeat within 2 hours if needed. max 2x/week. max daily dose 100mg Lamictal 00 Active Tablets 150mg 1 tab po Unknown / qd Escitalopram Active Tablets 20mg 1 tab po Nygren, Oxalate / qd MD Rayne Naproxen Sodium Active Capsules 220mg 2 tabs po Unknown / bid as needed Trazodone HCL Active Tablets 50mg 1 by Unknown / mouth every night at bedtime Testosterone Active Injection 1 Unknown / injection weekly Ventolin HFA Active Aerosol 108(90Bas prn Unknown / e) mcg/Act Omeprazole Active Capsules 20mg [address] saldana every day Medrol 11/12 Hx Tablets 4mg 21tab take as s directed Rico Dey - per 12/31 dosepak instructi ons Zonisamide 11/03 Hx Capsules 100mg 60cap take 2 by G43.709 caridad s mouth mine Dey M.D. - night 02/18 Rizatriptan 07/29 Hx Tablets 10mg 9tabs 1 by G43.709 Yair Rosas Dispers mouth MD - twice a 11/02 day needed headache max 2 days a week Zonisamide 11/27 Hx Capsules 50mg 90cap 3 caps by G43.709 Jeffrey s mouth mine Dey M.D. - night. 11/03 Topiramate 08/09 Hx Tablets 25mg 120ta 1 tablet G43.719 Aaliyah Cagle bs twice MD - daily 04/21 Omeprazole 10/25 Hx Capsules 40mg 30cap [address] louis Elder M.D. - every day 11/03 Sulfamethoxazole 07/08 Hx Tablets 800-160mg 10tab 1 tab by 788.64 Fadia /Trimethoprim s mouth 2x Rico Elder - per day 10/24 Methadone HCL 06/14 Hx Tablets 5mg 15tab 1 by 305.53 Fadia /2015 s shana Elder M.D. - once a 07/08 day in and 04/01 by mouth once pm Oxycodone-Acetam 05/19 Hx Tablets 10-325mg 42tab 1 tab by 789.00 Fadia landry s shana Elder M.D. - three 06/07 times day as needed Carisoprodol 05/19 Hx Tablets 350mg 60tab one by 847.2 Fadia louis Elder M.D. - night for 10/24 a Cyclobenzaprine 05/13 Hx Tablets 10mg 60tab one by 847.0 Fadia HCL s mouth 2x Rico Elder - per day 05/19 as needed spasm Oxycodone-Acetam 04/14 Hx Tablets 5-325mg 28tab take 1 789.00 Fadia inophen s tablets Rico Elder - by mouth 05/19 twice per day. Oxycodone-Acetam 03/22 Hx Tablets 5-325mg 28tab take 1 789.00 Fadia inophen s tablets Rico Elder - by mouth 04/14 every hours as needed pain Zofran 10/13 Hx Tablets 4mg 60tab 1 tab po s 2x a day Rico Elder - as needed 12/29 Flexeril 08/06 Hx Tablets 10mg 60tab 1 po at s bedtime Rico Elder - 08/06 Percocet 07/21 Hx Tablets 7.5-325mg 60tab 1 tab po Adams Odonnell /2012 s every 4 [place], - hours as Rico,FACP 08/21 Lexapro Hx Tablets 30mg 30tab 1 po qd / s - 06/07 Zyprexa Hx Tablets 5mg 30tab 1 po qhs / s - 06/07 Lamictal Hx Tablets 150mg 30tab 1 po qd Unknown / s - 09/30 Percocet 00 Hx Tablets 5-325mg 60tab 1 po q Fadia /0000 s bid prn Rico Elder - pain 07/21 Soma 00 Hx Tablets 350mg 60tab 1 po bid Isha / s Rico Gilman - 12/29 Vitamin D 2 00/ Hx Capsules [id number] 8caps 1 tab po Unknown /0000 every - week 08/21 Vitamin D 3 00/00 Hx Tablets 2000Unit po qd Unknown /0000 - 08/21 Percocet 00 Hx Tablets 10-325mg 60tab 1 tab po Unknown /0000 s bid - 03/22 Meloxicam Hx Tablets 7.5mg 60tab 1 po bid Fadia / s Rico Elder - 03/22 Miralax Hx Powder [id number] 30 17 gm Fadia / s every day Rico Elder - mixed w/ 07/30 8 oz /2016 water/jui ce Cephalexin Hx Capsules 500mg 21cap 1 po qid Unknown / s - 01/05 Lyrica Hx Capsules 50mg 10cap 1 by Unknown /0000 s mouth - twice a Flexeril Hx Tablets 10mg 60tab 1 by Unknown /0000 s mouth - three 09/30 times day as needed Docqlace Hx Capsules 100mg 60cap 1 tab by Fadia /0000 s mouth Rico Elder - twice a 07/30 day needed Topiramate Hx Tablets 25mg Fernandez, /0000 Ngoc Soliman DNP, 03/22 RN, [employer]- Iron (Ferrous Hx Tablets 256(28Fe) 180ta 1 by Unknown Gluconate) /0000 mg bs mouth - every 07/08 other Ibuprofen Hx Tablets 800mg 90tab by mouth Unknown / s three - times a 06/07 day needed Baclofen Hx Tablets 10mg 90tab 1/2 at hs Unknown /0000 s - 05/19 Zonisamide Hx Capsules 100mg 1 tab by Unknown /0000 mouth - every day 05/13 Tylenol Extra Hx Tablets 500mg 100ta 2 by Unknown Strength /0000 bs mouth as - needed 07/[address] 20mg 3 by Unknown /0000 Part mouth - every day 10/24 Vitamin D3 Hx Capsules 2000Unit 1 by Unknown /0000 mouth - every day 07/30 Methadone HCL Hx Tablets 5mg 14tab 1 by Fadia /0000 s shana Elder M.D. - twice a /2014 Black Cohosh / Hx tid with Unknown /0000 food - 07/08 Soy Isoflavones Hx Capsules 100mg 2 po qd Unknown - 07/30 Suboxone Hx Film 8-2mg 1 film Unknown / once - daily 10/24 Hydroxyzine HCL Hx Tablets 25mg Edwina, Juan Campos MD 07/30 Ibuprofen Hx Capsules 600mg as needed Unknown - 07/30 Claritin Hx Tablets 10mg once Unknown daily - 04/21 Zyrtec Allergy Hx Tablets 10mg 1 by Unknown / mouth - every day 05/20 for the next 3-4 weeks, then as needed Omeprazole Hx Capsules 20mg 1 by K29.00 Unknown / DR mouth - every day 11/02 Amoxicillin/Clav Hx Tablets 500-125mg Take One Unknown ulanat Tablet By Potassium - Mouth 02/18 Twice A Day For 10 Days Prednisone Hx Tablets 20mg As needed Nohelia, LINDA Koenig - 02/16 Immunizations CPT Code Status Date Vaccine Lot # [id number] Given 12/27/2012 Tdap - Tetanus/Diptheria/Acellular Pertussis Vital Signs Date Vital Result Comment 05/21/2018 8:23am Height 62 inches 5'2" Weight 185.00 lb Heart Rate 60 /min BP Systolic Sitting 118 mmHg BP Diastolic Sitting 82 mmHg Respiratory Rate 14 /min BMI (Body Mass Index) 33.8 kg/m2 02/18/2018 8:34am Height 62 inches 5'2" Weight 192.00 lb Heart Rate 68 /min BP Systolic 118 mmHg BP Diastolic 74 mmHg Pain Level 1 headache BMI (Body Mass Index) 35.1 kg/m2 01/01/2018 10:26am Height 62 inches 5'2" Weight 186.00 lb Heart Rate 74 /min BP Systolic 110 mmHg BP Diastolic 78 mmHg Respiratory Rate 16 /min BMI (Body Mass Index) 34.0 kg/m2 11/03/2017 9:57am Height 62 inches 5'2" Weight 189.00 lb Heart Rate 64 /min BP Systolic 112 mmHg BP Diastolic 78 mmHg Respiratory Rate 14 /min BMI (Body Mass Index) 34.6 kg/m2 07/29/2017 10:11am Height 62 inches 5'2" Weight 192.25 lb Heart Rate 68 /min BP Systolic 122 mmHg BP Diastolic 90 mmHg BMI (Body Mass Index) 35.2 kg/m2 04/22/2017 10:45am Height 62 inches 5'2" Weight 198.12 lb Heart Rate 68 /min BP Systolic 124 mmHg BP Diastolic 78 mmHg BMI (Body Mass Index) 36.2 kg/m2 11/27/2016 11:47am Height 62 inches 5'2" Weight 207.00 lb Heart Rate 78 /min BP Systolic Sitting 128 mmHg BP Diastolic Sitting 80 mmHg BMI (Body Mass Index) 37.9 kg/m2 08/09/2016 12:59pm Height 62 inches 5'2" Weight 199.00 lb Heart Rate 92 /min BP Systolic Sitting 128 mmHg BP Diastolic Sitting 84 mmHg Respiratory Rate 15 /min BMI (Body Mass Index) 36.4 kg/m2 10/25/2014 10:48am Weight 160.50 lb Heart Rate 98 /min BP Systolic Sitting 108 mmHg BP Diastolic Sitting 70 mmHg Pain Level 2 O2 % BldC Oximetry 98 % 07/08/2014 2:35pm Weight 178.00 lb Heart Rate 98 /min BP Systolic Sitting 110 mmHg BP Diastolic Sitting 78 mmHg Body Temperature 98.5 F O2 % BldC Oximetry 99 % 06/21/2014 10:48am Weight 178.50 lb Heart Rate 98 /min BP Systolic Sitting 118 mmHg BP Diastolic Sitting 82 mmHg Body Temperature 98.1 F 06/14/2014 10:47am Weight 180.00 lb Heart Rate 78 /min BP Systolic Sitting 122 mmHg BP Diastolic Sitting 96 mmHg Body Temperature 98.4 F 06/07/2014 3:38pm Height 63 inches 5'3" Weight 183.00 lb Heart Rate 82 /min BP Systolic Sitting 128 mmHg BP Diastolic Sitting 84 mmHg Body Temperature 98.6 F BMI (Body Mass Index) 32.4 kg/m2 05/19/2014 11:34am Weight 184.25 lb Heart Rate 116 /min BP Systolic Sitting 136 mmHg BP Diastolic Sitting 82 mmHg Body Temperature 99.0 F Pain Level 8 05/13/2014 12:30pm Weight 184.75 lb Heart Rate 86 /min BP Systolic Sitting 120 mmHg BP Diastolic Sitting 76 mmHg Pain Level 8 O2 % BldC Oximetry 99 % 04/14/2014 9:36am Weight 180.00 lb Heart Rate 98 /min BP Systolic Sitting 118 mmHg BP Diastolic Sitting 82 mmHg Body Temperature 98.8 F Pain Level 6 pelvic floor 03/22/2014 2:34pm Weight 179.50 lb Heart Rate 113 /min BP Systolic Sitting 124 mmHg BP Diastolic Sitting 88 mmHg Body Temperature 99.4 F Pain Level 6 O2 % BldC Oximetry 98 % 09/30/2013 4:16pm Weight 181.00 lb Heart Rate 82 /min BP Systolic Sitting 130 mmHg BP Diastolic Sitting 80 mmHg 09/03/2013 2:45pm Weight 178.00 lb Heart Rate 72 /min BP Systolic Sitting 122 mmHg BP Diastolic Sitting 80 mmHg Body Temperature 98.3 F 07/22/2013 3:44pm Weight 177.00 lb Heart Rate 92 /min BP Systolic Sitting 118 mmHg BP Diastolic Sitting 64 mmHg Body Temperature 99.2 F 01/05/2013 11:31am Weight 158.00 lb Heart Rate 61 /min BP Systolic Sitting 116 mmHg BP Diastolic Sitting 82 mmHg 12/29/2012 11:06am Weight 150.00 lb Heart Rate 74 /min BP Systolic Sitting 110 mmHg BP Diastolic Sitting 55 mmHg 09/30/2012 2:17pm Height 62 inches 5'2" Weight 149.00 lb Heart Rate 72 /min BP Systolic 116 mmHg BP Diastolic 72 mmHg Respiratory Rate 12 /min BMI (Body Mass Index) 27.2 kg/m2 08/21/2012 2:28pm Weight 142.00 lb Heart Rate 70 /min BP Systolic Sitting 110 mmHg BP Diastolic Sitting 74 mmHg 07/16/2012 8:38am Weight 146.00 lb Heart Rate 74 /min BP Systolic Sitting 116 mmHg BP Diastolic Sitting 76 mmHg 06/25/2012 2:53pm Height 88 inches 7'4" Weight 146.00 lb BP Systolic Sitting 100 mmHg BP Diastolic Sitting 80 mmHg BMI (Body Mass Index) 13.3 kg/m2 05/19/2012 11:22am Height 61.50 inches 5'1.50" Weight 142.00 lb Heart Rate 76 /min BP Systolic Sitting 104 mmHg BP Diastolic Sitting 70 mmHg BMI (Body Mass Index) 26.4 kg/m2 Results Test Date Facility Test Result H/L Range Note Laboratory test 01/13/2018 [facility] Culture Throat SEE RESULT 1, [address] [place] [address] [phone] Urine Culture And 07/08/2014 [facility] Urine Culture (SEE NOTE ) [address] [place] [address] [phone] Ua Routine 07/08/2014 [facility] Ua Specific 1.010 [place] Ua PH 5 Ua Color dark yellow Ua Appera clear Ua WBC neg Ua Protein neg Ua Glucose neg Ua Ketones neg Ua Bilirubin small Ua Urobilinogen neg Ua Nitrite neg Ua Occult Blood neg Urine Drug 05/30/2014 [facility] Amphetamine Ur None Detected N None Detect SCR ED & [address] Screen [place] [address] [phone] Barbiturates Urine Screen None Detected N None Detect Benzodiazepine Urine Screen None Detected N None Detect Urine Cannabinoids Screen None Detected N None Detect Urine Cocaine Screen None Detected N None Detect Urine Opiates Screen None Detected N None Detect Urine Phencyclidine Screen None Detected N None Detect 4 Urinalysis Profile 05/30/2014 [facility] Urine Color Yellow N [address] [place] [address] [phone] Urine Appearance Cloudy N Urine Specific [place] 1.015 N 1.010-1.030 Urine pH 5.0 N 5-9 Urine Urobilinogen Negative N Negative Urine Ketones Negative N Negative Urine Protein Negative N Negative Urine Leukocytes 2+ Abnormal Negative Urine Blood Negative N Negative Urine Nitrite Negative N Negative Urine Bilirubin Negative N Negative Urine Glucose Negative N Negative Urine White Blood Cell 2+(11-20/hpf) Abnormal Absent Urine Red Blood Cell Trace(0-2/hpf) N Absent Urine Bacteria 1+ Abnormal Absent Urine Squamous Epithelial Cell Present Abnormal Absent Laboratory test 05/30/2014 [facility] Acetaminophen < 15 g/mL N 5 finding [address] [place] [address] [phone] Alcohol < 10 mg/dL N <10 Salicylate < 2.50 mg/dL N <30 TSH (Thyroid Stimulating Horm) 1.73 IU/mL N 0.34-5.60 Comp Metabolic Panel 05/30/2014 [facility] Sodium 137 mmol/L N 133-145 [address] [place] [address] [phone] Potassium 4.1 mmol/L N 3.5-5.0 Chloride 107 mmol/L N 101-111 Co2 Carbon Dioxide 21 mmol/L Low 22-32 Anion Gap 9 mmol/L N 2-11 Glucose 132 mg/dL High 70-100 Blood Urea Nitrogen 11 mg/dL N 6-24 Creatinine 0.77 mg/dL N 0.51-0.95 BUN/Creatinine Ratio 14.3 N 8-20 Calcium 9.3 mg/dL N 8.6-10.3 Total Protein 7.4 g/dL N 6.4-8.9 Albumin 4.8 g/dL N 3.2-5.2 Globulin 2.6 g/dL N 2-4 Albumin/Globulin Ratio 1.8 N 1-3 Total Bilirubin 0.30 mg/dL N 0.2-1.0 Alkaline Phosphatase 75 U/L N 34-104 Alt 19 U/L N 7-52 Ast 12 U/L Low 13-39 Egfr Non- 89.3 N >60 Egfr 114.8 N >60 6 Laboratory test 05/30/2014 [facility] Serum Negative N Negative [address] [place] [address] [phone] CBC Auto Diff 05/30/2014 [facility] White Blood 9.9 10^3/uL N 4.8-10.[address] [place] [address] [phone] Red Blood Count 4.47 10^6/uL N 4.0-5.4 Hemoglobin 13.3 g/dL N 12.0-16.0 Hematocrit 40 % N 35-47 Mean Corpuscular Volume 89 fL N 80-97 Mean Corpuscular Hemoglobin 30 pg N 27-31 Mean Corpuscular HGB Conc 34 g/dL N 31-36 Red Cell Distribution Width 14 % N 10.5-15 Platelet Count 281 10^3/uL N 150-450 Mean Platelet Volume 8 um3 N 7.4-10.4 Abs Neutrophils 8.1 10^3/uL High 1.5-7.7 Abs Lymphocytes 1.3 10^3/uL N 1.0-4.8 Abs Monocytes 0.5 10^3/uL N 0-0.8 Abs Eosinophils 0 10^3/uL N 0-0.6 Abs Basophils 0 10^3/uL N 0-0.2 Abs Nucleated RBC 0 10^3/uL N Granulocyte % 81.5 % N 38-83 Lymphocyte % 12.9 % Low 25-47 Monocyte % 4.9 % N 1-9 Eosinophil % 0.2 % N 0-6 Basophil % 0.5 % N 0-2 Nucleated Red Blood Cells % 0 N Drug Abuse 20 04/14/2014 [facility] Urine Amphetamine Negative ng/mL N [address] [place] [address] [phone] Urine Barbiturates Negative ng/mL N 9 Urine Benzodiazepines Negative ng/mL N 10 Urine Cocaine Negative ng/mL N 11 Urine Methadone Negative ng/mL N 12 Urine Opiates Negative ng/mL N 13 Urine Phencyclidine Negative ng/mL N Cutoff: 25 Urine Tetrahydrocannabinol Negative ng/mL N Cutoff: 20 14 Urine Oxycodone Negative ng/mL N 15 Comp Metabolic Panel 08/26/2013 [facility] Sodium 140 mmol/L N 133-[address] [place] [address] [phone] Potassium 4.4 mmol/L N 3.7-5.6 Chloride 106 mmol/L N 101-111 Co2 Carbon Dioxide 28 mmol/L N 22-32 Anion Gap 6 mmol/L N 2-11 Glucose 99 mg/dL N 70-100 Blood Urea Nitrogen 18 mg/dL N 6-24 Creatinine 1.12 mg/dL High 0.51-0.95 BUN/Creatinine Ratio 16.1 N 8-20 Calcium 8.9 mg/dL N 8.6-10.3 Total Protein 6.8 g/dL N 6.4-8.9 Albumin 4.4 g/dL N 3.2-5.2 Globulin 2.4 g/dL N 2-4 Albumin/Globulin Ratio 1.8 N 1-3 Total Bilirubin 0.40 mg/dL N 0.2-1.0 Alkaline Phosphatase 71 U/L N 34-104 Alt 19 U/L N 7-52 Ast 17 U/L N 13-39 Egfr Non- 58.4 N >60 Egfr 75.0 N >60 16 CBC With 08/26/2013 [facility] White Blood 7.2 10^3/uL N 4.8- 10.8 Manual Diff [address] [place] [address] [phone] Red Blood Count 4.31 10^6/uL N 4.0-5.4 Hemoglobin 12.5 g/dL N 12.0-16.0 Hematocrit 37 % N 35-47 Mean Corpuscular Volume 86 fL N 80-97 Mean Corpuscular Hemoglobin 29 pg N 27-31 Mean Corpuscular HGB Conc 34 g/dL N 31-36 Red Cell Distribution Width 13 % N 10.5-15 Platelet Count 259 10^3/uL N 150-450 Mean Platelet Volume 9 um3 N 7.4-10.4 Abs Neutrophils 3.9 10^3/uL N 1.5-7.7 Abs Lymphocytes 2.3 10^3/uL N 1.0-4.8 Abs Monocytes 0.4 10^3/uL N 0-0.8 Abs Eosinophils 0.5 10^3/uL N 0-0.6 Abs Basophils 0 10^3/uL N 0-0.2 Abs Nucleated RBC 0.01 10^3/uL N Neutrophil % 50 % N 38-83 Lymphocytes % 39 % N 25-47 Monocytes % 7 % N 0-13 Eosinophils % 3 % N 0-6 Basophil % 1 % N 0-2 RBC Morphology Normal N Normal Laboratory test 08/26/2013 [facility] Erythrocyte Sed 16 mm/Hr High 0-[address] [place] [address] [phone] CBC Auto Diff 03/29/2013 [facility] White Blood 6.8 4.8-10.[address] Count 10^3/[place] [address] [phone] Red Blood Count 4.25 10^6/uL 4.0-5.4 Hemoglobin [...] Cells % 0.1 Comp Metabolic Panel 03/29/2013 [facility] Sodium 136 mmol/L 133-[address] [place] [address] [phone] Potassium 3.6 mmol/L 3.5-5.0 Chloride 107 mmol/L [...] Egfr Non- 100.4 >60 Egfr 129.1 >60 17 Laboratory test 03/29/2013 [facility] C Reactive < 0.5 mg/dL Less than finding [address] Protein 0.5 [place] [address] [phone] Urinalysis 03/29/2013 [facility] Urine Color Yellow [address] [place] [address] [phone] Urine Appearance Clear Urine Specific [place] 1.004 Low 1.010-1.030 Urine Esterase Negative Negative Urine Nitrate Negative Negative Urine Urobilinogen Negative E.U./dL Negative Urine Protein Negative mg/dL Negative Urine pH 5.5 5-9 Urine Blood Negative Negative Urine Ketones Negative mg/dL Negative Urine Bilirubin Negative Negative Urine Glucose Negative mg/dL Negative Vitamin D, 25 06/26/2012 [facility] 25-Hydroxy Vitamin 27 ng/mL Hydroxy [address] D2 [place] [address] [phone] 25-Hydroxy Vitamin D3 34 ng/mL 25-Hydroxy Vitamin D Total 61 ng/mL 18 Drug Abuse 20 06/25/2012 [facility] Urine Amphetamine Negative ng/mL [address] [place], [place] [address] [phone] Urine Barbiturates Negative ng/mL 20 Urine Benzodiazepines Negative ng/mL 21 Urine Cocaine Negative ng/mL 22 Urine Methadone Negative ng/mL 23 Urine Opiates Negative ng/mL 24 Urine Phencyclidine Negative ng/mL Cutoff: 25 Urine Propoxyphene Negative ng/mL 25 Urine Tetrahydrocannabinol Negative ng/mL Cutoff: 20 26 Creatinine 22.8 mg/dL Specific [place] 1.003 pH 5.8 Oxidants Negative 27 Urine Opiates Screen Negative 28 Urine Codeine Confirmation Negative ng/mL 29 Urine Hydrocodone Confirm Negative ng/mL 30 Urine Hydromorphone Confirm Negative ng/mL 31 Urine Morphine Confirm Negative ng/mL 32 Urine Oxycodone Confirm 187 ng/mL 33 Urine Opiates Interpretation See Comment 34 1 [id number] 2 SEE RESULT BELOW Name: KETURAH AKINS : [address]: Cooper Dixon MD Acct: [id number] Unit: [id number] AGE: 32 Location: [facility] Re01/13/18 SEX: M Status: REG REF SPEC: [id number] JOSIANE: 01/13/18-[address]: Cooper Dixon MD REQ: [id number] RECD: 01/13/18 STATUS: COMP _ SOURCE: THROAT SPDESC: ORDERED: Throat Culture COMMENTS: [id number] Procedure Result Reported Site Throat Culture Final 01/15/18- 1251 ML Organism 1 HAEMOPHILUS INFLUENZAE Quantity 3+ Beta Lactamase Negative Organism 2 NORMAL ORAL Quantity 2+ * ML - Main Lab . END OF REPORT DEPARTMENT OF PATHOLOGY, [facility] [place], [place] [address] Roger Flores M.D. Director [facility] # [id number] 3 RUN DATE: 07/10/14 [facility] LAB LIVE PAGE 1 RUN TIME: [address] [place] [id number] Specimen Inquiry Name: KETURAH WATSON : [address]: Fadia Elder MD Acct: [id number] Unit: [id number] AGE: 28 Location: [facility] Re07/08/14 SEX: F Status: REG REF SPEC: [id number] JOSIANE: 07/08/14-[address]: Fadia Elder MD REQ: [id number] RECD: 07/08/14 STATUS: COMP _ SOURCE: URINE SPDESC: ORDERED: Urine Culture QUERIES: Provider Requisition # [id number] Procedure Result Verified Site Urine Culture Final 07/10/14- 928 ML No Growth Day 2 (<1,000 CFU/mL) * ML - MAIN LAB ([facility]) . END OF REPORT * ML=Testing performed at Main Lab DEPARTMENT OF PATHOLOGY, [address] [place] [address] Roger Flores M.D. Director [facility] # [id number] 4 The urine specimen was tested at the listed cutoffs: Drug class test level (ng/mL) Amphetamines 500 Barbituates 200 Benzodiazepine metabolites 200 Cocaine metabolites 150 Cannabinoids 50 Opiates 300 Pcp 25 This is a screening procedure. Positive results are not confirmed. Specimen was received without chain of custody. Results should be used for medical purposes only. 5 Therapeutic concentration: <50 ug/mL Toxic concentration: >120 ug/mL 6 Because ethnic data is not always readily [...] 15-29 5 Kidney failure <15 (or dialysis) 7 This test detects intact HCG only and is indicated for the early detection of . 8 REFERENCE VALUE Cutoff: 500 9 REFERENCE VALUE Cutoff: 200 10 REFERENCE VALUE Cutoff: 200 11 REFERENCE VALUE Cutoff: 150 12 REFERENCE VALUE Cutoff: 150 13 REFERENCE VALUE Cutoff: 300 14 ADDITIONAL INFORMATION This report is intended for use in clinical monitoring or management of patients. It is not intended for use in employment-related testing. 15 REFERENCE VALUE Cutoff: 100 ADDITIONAL INFORMATION This report is intended for use in clinical monitoring or management of patients. It is not intended for use in employment-related testing. Test Performed by: [address] [address] Asian Studies Professor: Rico Nunn M.D. 16 Because ethnic data is not always readily [...] 15-29 5 Kidney failure <15 (or dialysis) 17 Because ethnic data is not always readily [...] 15-29 5 Kidney failure <15 (or dialysis) 18 -- REFERENCE VALUE -- 25-HYDROXY D TOTAL (D2+D3) Optimum levels in the normal population are 25-80 Test Performed by: [place] [id number] Asian Studies Professor: Jamarcus Chavez III, M.D. 19 -- REFERENCE VALUE -- Cutoff: 500 20 -- REFERENCE VALUE -- Cutoff: 200 21 -- REFERENCE VALUE -- Cutoff: 200 22 -- REFERENCE VALUE -- Cutoff: 150 23 -- REFERENCE VALUE -- Cutoff: 300 24 -- REFERENCE VALUE -- Cutoff: 300 25 -- REFERENCE VALUE -- Cutoff: 300 26 This report is intended for use in clinical monitoring or management of patients. It is not intended for use in employment-related testing. 27 Test Performed by: [address] [address] Asian Studies Professor: Jamarcus Chavez III, M.D. 28 -- REFERENCE VALUE -- Cutoff: 300 29 -- REFERENCE VALUE -- Cutoff: 100 30 -- REFERENCE VALUE -- Cutoff: 100 31 -- REFERENCE VALUE -- Cutoff: 100 32 -- REFERENCE VALUE -- Cutoff: 100 33 -- REFERENCE VALUE -- Cutoff: 100 34 Positive. Discrepancy noted between immunoassay result and GC/MS result. The GC/MS result is the definitive result. This report is intended for use in clinical monitoring and management of patients. It is not intended for use in employment-related testing. Test Performed by: [address] [address] Asian Studies Professor: Jamarcus Chavez III, M.D. Procedures Date Code Description Status 06/03/2014 16966 EKG, Interpretation Only Completed Encounters Type Date Location Provider Dx Diagnosis Office Visit 05/21/2018 Ezekiel Dey G43.709 Chronic migraine 8:00a [facility] G[facility] w/o aura, not intractable, w/o stat migr Office Visit 02/18/2018 [place]/Ezekiel Dey G43.709 Chronic migraine 8:30a Neurologic lAek w/o aura, not Core Dipper intractable, w/o stat migr H92.01 Otalgia, right ear Office Visit 01/01/2018 Ezekiel Murphy G43.709 Chronic migraine 10:15a [place] M.D. w/o aura, not [facility] intractable, w/o stat migr Office Visit 11/03/2017 Ezekiel Murphy G43.709 Chronic migraine 9:45a [place] M.D. w/o aura, not Services [facility] [place] intractable, w/o stat migr F07.81 Postconcussional syndrome Office Visit 07/29/2017 [facility] Aaliyah G43.709 Chronic migraine 10:00a Adalid Cagle MD w/o aura, not intractable, w/o stat migr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
[2018-05-25 18:08] VITALS: BP 133/85
[2018-05-25] MEDS ORDERED: Ondansetron ODT TAB* 4 MG PO ONE (18:44)
--- NOTE | 2018-05-25 18:56 | UC ---
Abdominal Pain Male HPI - HPI Summary HPI Summary: Patient presents to emergency department for evaluation of progressive abdominal pain over the last 5 days. Patient states he first felt a little bit of epigastric fullness that he thought was indigestion. Patient states he has used Pepto-Bismol with little improvement. Patient states he is having bowel movements but they've been progressively more loose. Patient states he doesn't feel bloated. Patient states he's got some nausea but no vomiting. No fevers or chills. No headache or vision changes. Patient denies history of similar. Patient is status post laparoscopic hysterectomy in 2013. Patient has not had any history of bowel obstructions. Patient does not have any other abdominal surgeries. Patient denies any discomfort with urination. No hematuria. No back pain. No fevers, chills, rashes. Patient's medications reviewed this visit - History of Current Complaint Chief Complaint: UCAbdominalPain Stated Complaint: ABDOMINAL PAIN Time Seen by Provider: 05/25/18 18:09 Hx Obtained From: Patient Severity Initially: Mild Severity Currently: Mild Pain Intensity: 2 Pain Scale Used: 0-10 Numeric Location: Diffuse, Epigastric Radiates: No - Allergies/Home Medications Allergies/Adverse Reactions: Allergies Allergy/AdvReac Type Severity Reaction Status Date / Time No Known Allergies Allergy Verified 05/25/18 17:53 Home Medications: Home Medications Albuterol HFA INHALER* [Ventolin HFA Inhaler*] 2 puff INH Q4H PRN 05/25/18 [ History Confirmed 05/25/18] Bisacodyl SUPP* [Dulcolax Supp*] [address] DAILY PRN 05/25/18 [History Confirmed 05/25/18] Bismuth Subsalicylate [Pepto-Bismol Max Strength] 1 udc PO DAILY PRN 05/25/18 [ History Confirmed 05/25/18] Escitalopram Oxalate [Lexapro 20 mg] 20 mg PO DAILY 05/25/18 [History Confirmed 05/25/18] Riboflavin (Vitamin B2) [Vitamin B-2] 100 mg PO DAILY 05/25/18 [History Confirmed 05/25/18] Simethicone [Gas-X] 125 mg PO DAILY PRN 05/25/18 [History Confirmed 05/25/18] PMH/Surg Hx/FS Hx/Imm Hx Previously Healthy: Yes - Surgical History Surgical History: Yes Surgery Procedure, Year, and Place: TUBES IN EARS CHILD. RIGHT HIP SURGERY - TENDON ELONGATED & JOINT CLEANED-UP. 03/2013 explor lap - endometriosis diagnosed. Hysterectomy 03/15/14. TUBE IN RIGHT EAR DEC 2017. B /L mastectomy--02/2018 - Family History Known Family History: Positive: Cardiac Disease, Hypertension, Diabetes, Other - CHOLESTEROL - Social History Lives: With Family Alcohol Use: Rare Substance Use Type: None Substance Use Comment - Amount & Last Used: patient denies street drugs and marijuana use. percocet. Smoking Status (MU): Former Smoker Type: Cigarettes Amount Used/How Often: quit in 2011 Length of Time of Smoking/Using Tobacco: 6 years Have You Smoked in the Last Year: No When Did the Patient Quit Smoking/Using Tobacco: Quit March 2012 - Immunization History Most Recent Influenza Vaccination: NOT THIS YEAR Most Recent Tetanus Shot: UTD Most Recent Pneumonia Vaccination: N/A Review of Systems All Other Systems Reviewed And Are Negative: Yes Constitutional: Positive: Negative Skin: Positive: Negative Eyes: Positive: Negative Gastrointestinal: Positive: Abdominal Pain Physical Exam - Summary Physical Exam Summary: Vital Signs Reviewed: Yes A+Ox3, no distress Eyes: Conjunctiva Clear, CHARLES. EOM intact and full ENT: Hearing grossly normal TM x 2 clear, mmoist, uvula midline, no exudate, no erythema Neck: Positive: Supple Respiratory: Positive: No respiratory distress, No accessory muscle use + CTA throughout no w/r Cardiovascular: RRR nl s1, s2 no m/r CBT <2 sec abd soft + diffuse tendernesss, increased in epigastric and RUQ area no guarding, rebound, mild distension Musculoskeletal Exam: DEL ANGEL x 4 without difficulty Strength Intact, ROM Intact Neurological: Positive: Alert, + sensation throughout Psychological: Positive: Normal Response To Family Skin: Positive: no rash, no ecchymosis Triage Information Reviewed: Yes Vital Signs: Initial Vital Signs Temp 98.1 F 05/25/18 17:56 Pulse 60 05/25/18 17:56 Resp 16 05/25/18 17:56 BP 133/85 05/25/18 17:56 Pulse Ox 99 05/25/18 17:56 Abd Pain Male Course/Dx - Course Course Of Treatment: Patient presents to urgent care with 5 days of progressive diffuse abdominal pain, diarrhea, and fullness. Patient with mild nausea but no vomiting. No fevers or chills. Patient without history of similar. Patient has had a laparoscopic hysterectomy but no other intra-abdominal surgeries. On exam patient's vital signs are stable. Patient appears mildly discomfort. Patient with diffuse discomfort however increased epigastric right upper quadrant. Urine is normal and not concerning. Discussed with patient differential including bowel obstruction,: We lithiasis, gastritis, pancreatitis , gastroneuritis. Given patient with diffuse abdominal pain this been progressive recommended equally emergency department for further evaluation and treatment. Patient comfortable and agreement with plan. I [facility] Department with little to 4 minutes without answer. I then. Patient comfortable in agreement with plan. - Differential Dx/Clinical Impression Provider Diagnosis: Abdominal pain Discharge - Sign-Out/Discharge Documenting (check all that apply): Patient Departure All imaging exams completed and their final reports reviewed: No Studies - Discharge Plan Condition: Stable Disposition: HOME-RECOMMEND TO ED Patient Education Materials: Acute Abdominal Pain (ED) Referrals: Chery Andersen MD [Primary Care Provider] - Additional Instructions: The doctor that evaluated you recommended to the emergency department for further evaluation and treatment. Patient is provided to be determined by the provider that evaluated you in the emergency department. Is recommended you go directly there. Do not you take anything prior to evaluation at the urgent emergency department. They have been contacted know that you will be coming. If her symptoms change or you have any concerns en route is recommended to pullover and call 911. - Billing Disposition and Condition Condition: STABLE Disposition: Home-Recommend to ED
== END 2018-05-25 18:54 | disposition home health service (06) ==
LOC: UCCORT 17:33
DX: R10.84 Generalized abdominal pain (principal); R11.0 Nausea; Z87.891 Personal history of nicotine dependence
CPT/HCPCS: 81003; 99212; A9270-GY; G0463

== ENCOUNTER 2018-07-05 13:38 | Emergency (ER) | payer BC ==
[2018-07-05 14:01] VITALS: BP 117/79
[2018-07-05 14:07] LABS: Influenza A Molecular NEGATIVE (Negative); Influenza B Molecular NEGATIVE (Negative)
--- NOTE | 2018-07-05 14:13 | UC ---
Throat Pain/Nasal Dom HPI - HPI Summary HPI Summary: 32 year old male with h/o chronic migraines presents with fever, chills, fatigue, body aches, sinus congestion with increased mucous production, mild productive cough with migraine for past week. dx'd with flu and strep, concerned about infection . - History of Current Complaint Chief Complaint: UCGeneralIllness Stated Complaint: FLU LIKE SYM Time Seen by Provider: 07/05/18 14:12 Hx Obtained From: Patient Onset/Duration: Sudden Onset, Lasting Days Severity: Moderate Pain Intensity: 3 Pain Scale Used: 0-10 Numeric - Allergies/Home Medications Allergies/Adverse Reactions: Allergies Allergy/AdvReac Type Severity Reaction Status Date / Time No Known Allergies Allergy Verified 07/05/18 13:51 PMH/Surg Hx/FS Hx/Imm Hx Previously Healthy: No - Surgical History Surgical History: Yes Surgery Procedure, Year, and Place: TUBES IN EARS CHILD. RIGHT HIP SURGERY - TENDON ELONGATED & JOINT CLEANED-UP. 03/2013 explor lap - endometriosis diagnosed. Hysterectomy 03/15/14. TUBE IN RIGHT EAR DEC 2017. B /L mastectomy--02/2018 - Family History Known Family History: Positive: Unknown, Cardiac Disease, Hypertension, Diabetes , Other - CHOLESTEROL - Social History Alcohol Use: None Substance Use Type: None Substance Use Comment - Amount & Last Used: patient denies street drugs and marijuana use. percocet. Smoking Status (MU): Former Smoker Type: Cigarettes Amount Used/How Often: quit in 2011 Length of Time of Smoking/Using Tobacco: 6 years Have You Smoked in the Last Year: No When Did the Patient Quit Smoking/Using Tobacco: Quit March 2012 - Immunization History Most Recent Influenza Vaccination: NOT THIS YEAR Most Recent Tetanus Shot: UTD Most Recent Pneumonia Vaccination: N/A Review of Systems All Other Systems Reviewed And Are Negative: Yes Constitutional: Positive: Fever, Chills, Fatigue ENT: Positive: Sore Throat, Sinus Congestion, Sinus Pain/Tenderness Respiratory: Positive: Cough Is Patient Immunocompromised?: No Physical Exam Triage Information Reviewed: Yes Appearance: No Pain Distress, Well-Nourished, Ill-Appearing Vital Signs: Initial Vital Signs Temp 98.7 F 07/05/18 13:56 Pulse 60 07/05/18 13:56 Resp 18 07/05/18 13:56 BP 117/79 07/05/18 13:56 Pulse Ox 99 07/05/18 13:56 Vital Signs Reviewed: No Eyes: Positive: Conjunctiva Clear ENT: Positive: Pharynx normal, TMs normal, Sinus tenderness - frontal b/l. Negative: Pharyngeal erythema, TM bulging, TM dull, TM red, Tonsillar swelling, Tonsillar exudate Neck: Positive: Supple, Nontender, No Lymphadenopathy. Negative: Nuchal Rigidity Respiratory: Positive: Chest non-tender, Lungs clear, Normal breath sounds, No respiratory distress, No accessory muscle use. Negative: Crackles, Rhonchi, Stridor, Wheezing Neurological Exam: Normal Throat Pain/Nasal Course/Dx - Course Course Of Treatment: strep, flu negative. ale viral, too late for tamiflu, continue over the counter treatments - Differential Dx/Diagnosis Provider Diagnosis: Viral upper respiratory illness Discharge - Sign-Out/Discharge Documenting (check all that apply): Patient Departure All imaging exams completed and their final reports reviewed: No Studies - Discharge Plan Condition: Stable Disposition: HOME Patient Education Materials: Viral Syndrome (ED) Forms: *Work Release Referrals: Chery Andersen MD [Primary Care Provider] - Additional Instructions: - Over the counter treatment - Increase fluid intake - Follow up with primary if no improvement within 2-3 days - Work note given - Billing Disposition and Condition Condition: STABLE Disposition: Home
== END 2018-07-05 14:40 | disposition home or self-care (01) ==
LOC: UCEAST 13:38
DX: J06.9 Acute upper respiratory infection, unspecified (principal); G43.909 Migraine, unspecified, not intractable, without status migrainosus; Z87.891 Personal history of nicotine dependence
CPT/HCPCS: 87651; 99211; G0463

== ENCOUNTER 2019-02-17 10:37 | Emergency (ER) | payer BC ==
--- OUTSIDE RECORDS SUMMARY | 2019-02-17 11:14 | XMS REPORT | Continuity of Care Document ---
:1985 Author Organization [facility] Address [address] [place] [address] Phone Care Team Providers Name Role Phone Lisa Moe NP Unavailable Unavailable Allergies, Adverse Reactions, Alerts Substance Reaction Status No Known Allergies Active Medications Medication Instructions Dosage Effective Status Comments Dates (start - stop) testosterone INJECT 0.5ML ONCE - Active enanthate 200 mg/mL WEEKLY CODE F intramuscular oil BD Luer-Uma Syringe Use as directed - Active 1 mL 20 gauge x 1" for weekly IM injections (1 box= 100 syringes with needle) needle (disp) 23 Use as directed - Active gauge x 1" for weekly IM injections; this is the needle you will use to inject the medication into muscle (1 atf=487 needles) VERAPAMIL ER PM Not Available - Active (unknown strength) AJOVY (unknown Not Available - Active strength) ZONISAMIDE (unknown Not Available - Active strength) OMEPRAZOLE (unknown Not Available - Active strength) LEXAPRO (unknown Not Available - Active strength) TRAZODONE HCL Not Available - Active (unknown strength) LAMICTAL (unknown Not Available - Active strength) testosterone INJECT 0.5ML ONCE - No Longer enanthate 200 mg/mL WEEKLY Active intramuscular oil Problems Condition Effective Dates (start - Clinical Status Comments stop) Body mass index (BMI) 36.0-36.9, - adult Human immunodeficiency virus [HIV] - counseling Endocrine disorder, unspecified Transsexualism Encntr screen for dis of the bld/bld-form org/immun mechnsm Human immunodeficiency virus [HIV] - counseling Endocrine disorder, unspecified Transsexualism Endocrine disorder, unspecified Transsexualism Acne, unspecified Encntr screen for dis of the bld/bld-form org/immun mechnsm Endocrine disorder, unspecified Transsexualism Endocrine disorder, unspecified Transsexualism Endocrine disorder, unspecified Transsexualism Endocrine disorder, unspecified Transsexualism Encntr screen for dis of the bld/bld-form org/immun mechnsm Endocrine disorder, unspecified Transsexualism Gastric ulcer - Active [id number] transsexual - Active Procedures Procedure Date No information Results Test Name Date and Time Measure Units Reference Range Abnormal Flag Status Comments No information Advance Directives Directive Yes / No Effective Date File Name No information Encounters Encounter Practice Location Reason(s) Diagnoses Date Provider Providers Description For Visit Copied on Encounter [facility]. [facility] [place] [address] , [place], [place], [address], [facility] [address] [place], [place], [id number], [place] tel:[phone] [facility] Jaciel Wright. [facility] [place] [address] , [place], [place], [address]. [place] [address] tel:[phone] [address] [place], [place], [id number], [place] tel:[phone] [facility] Human Abhi Gonzalez. [facility] [place] [facility]ien[facility] [address] Provider: [facility] y virus [HIV] [address] , [place], [place], [address], [address] disorder, [place]. [address] , [place], [address], [place], [place], [address]. [place], r screen for [id number], dis of the [place] bld/bld-form tel:[phone] org/immun [phone] mechnsm [facility] Human Jun- Abhi Gonzalez. [facility] [place] [facility] [address] Provider: [facility] y virus [HIV] [address] St, [place], [place], [address], [place], [address] [facility], [facility] rine disorder, [place]. [address] unspecified[address]an , [place], , [place], [place], [address]. [place], [id number], [place] tel:[phone] [facility] Mar-1 [facility] [place] [address] [place] [address], [facility], [address] [place], [place], [address] [address]. [facility], tel:[phone] [place], [id number], [place] tel:[phone] [facility] End[facility] Nov-0 Abhi Gonzalez. [facility]erring [facility] [place] disorder, [address] Provider: [facility] unspecifiedTran [address] , [place], [place], [address], [place], [address] [facility], [facility] unspecifiedBody [place]. [address] mass index , [place], , [place], ([place]) [place], [address]. [place], 36.0-36.9, [id number], adult [place] tel:[phone] [facility] Encntr screen Oct- Rap[facility] [place] for dis of the [place]. [address] bld/bld-form [address], [place] org/immun [place], [place], [facility], [facility] mechnsmEndocrin [address]. [address] e disorder, tel:[phone] [facility], unspecifiedTran [address] [place], ssexualism [id number], [place] tel:[phone] [facility] End[facility] July-2 [facility] [place] disorder, [place]. Provider: [facility] unspecifiedTran 7 [address] NURSE [place] ssexualism [facility], [facility]. [facility], [place], [address], [address] [place]. [facility], tel:[phone] [place], [id number], [place] tel:[phone] [facility] July- Abhi Gonzalez. [facility] [place] disorder, [address] Provider: [place] unspecifiedTran 7 [facility], [place], [address], [facility]. [place] [address] [place], [place], [place], [id number], tel:[phone] [facility] July-0 Abhi Gonzalez. [facility]ing [facility] [place] disorder, [address] Provider: [place] unspecifiedTran 7 [facility], [place], [address], [facility]. [place] [address] [place]. [address] [place], [id number], tel:[phone] [facility] Encntr screen [facility] the [facility] bld/bld-form [address] [place]. [address] [place] org/immun W [facility], [facility] mechnsmEndocrin [place], [address] [place], [address]. [facility], unspecifiedTran tel:[phone] [place], [place]sexualism [id number], tel:[phone] Family History Family Member Diagnosis Age At Onset Family history of Diabetes mellitus Paternal grandfather Cardiovascular disease Maternal grandmother Alzheimer's disease Family history of Hypertension Immunizations Vaccine Date Status Comments No information Payers Payer name Insurance type Covered green party ID Authorization(s) [facility] [id number] Social History Type Description Quantity Date Captured Comments Alcohol Use Details Unknown Caffeine Use Details Unknown Tobacco Use Status Unknown Smoking Status Never smoker Sex Female Vital Signs Date / Height Weight BMI Pulse Blood Temperature Respiratory Body Head BMI Pulse Inhaled Time: Rate Pressure Rate Surface Circumference percentile Ox Ox Area No information Chief Complaint And Reason For Visit No information Reason For Referral Reason For Referral No information Plan Of Treatment Date Type Action Status Goal Dietary management education, guidance, and counseling completed History Of Present Illness Encounter Date Complaint History Of Present Illness No information Functional Status Date Functional Assessment No information Medications Administered Medication Instructions Dosage Effective Dates (start - stop) Status Comments No information Instructions Date Instruction Additional Information Dietary management education, Related to Body mass index (BMI) guidance, and counseling 36.0-36.9, adult Assessments Type Assessment Date No information Goals Health Concern Goal Type Priority Status Date No information Medical Equipment Description Device Meno Device Identifier Effective Dates (start - stop ) Status No information Mental Status Date Cognitive Assessment No information Health Concerns Observation Date No information Concern Status Date No information
[2019-02-17 11:35] VITALS: BP 129/79
--- NOTE | 2019-02-17 12:52 | UC ---
Throat Pain/Nasal Dom HPI - HPI Summary HPI Summary: 33-year-old female comes in with chief complaints of sinusitis symptoms. Been having sinus symptoms for more than 2 weeks. Last couple of days pressures got a lot worse. Has had green rhinorrhea and postnasal drip. Has been coughing up greenish sputum. She does have asthma but that has not been exacerbated by this illness. Is having chills. - History of Current Complaint Chief Complaint: UCGeneralIllness Stated Complaint: SINUS PRESSURE,CONGESTION,ST,NAUSEA,STOMACH ACHE Time Seen by Provider: 02/17/19 12:41 Pain Intensity: 0 - Allergies/Home Medications Allergies/Adverse Reactions: Allergies Allergy/AdvReac Type Severity Reaction Status Date / Time No Known Allergies Allergy Verified 02/17/19 11:26 Home Medications: Home Medications Phenylephrine/Dm/Acetaminop/GG [Tylenol Cold-Flu Severe Caplet] 2 tab PO ONCE [History Confirmed 02/17/19] PMH/Surg Hx/FS Hx/Imm Hx Previously Healthy: Yes - BORN FEMALE/TRANSITIONING TO MALE - Surgical History Surgical History: Yes Surgery Procedure, Year, and Place: TUBES IN EARS CHILD. RIGHT HIP SURGERY - TENDON ELONGATED & JOINT CLEANED-UP. 03/2013 explor lap - endometriosis diagnosed. Hysterectomy 03/15/14. TUBE IN RIGHT EAR DEC 2017. B /L mastectomy--02/2018 - Family History Known Family History: Positive: Unknown, Cardiac Disease, Hypertension, Diabetes , Other - CHOLESTEROL - Social History Alcohol Use: None Substance Use Type: None Substance Use Comment - Amount & Last Used: patient denies street drugs and marijuana use. percocet. Smoking Status (MU): Former Smoker Type: Cigarettes Amount Used/How Often: quit in 2011 Length of Time of Smoking/Using Tobacco: 6 years Have You Smoked in the Last Year: No When Did the Patient Quit Smoking/Using Tobacco: Quit March 2012 - Immunization History Most Recent Influenza Vaccination: NOT THIS YEAR Most Recent Tetanus Shot: UTD Most Recent Pneumonia Vaccination: N/A Review of Systems All Other Systems Reviewed And Are Negative: Yes Constitutional: Positive: Other - SEE HPI Skin: Positive: Negative Eyes: Positive: Negative ENT: Positive: Sore Throat, Ear Ache, Nasal Discharge, Sinus Congestion, Sinus Pain/Tenderness Respiratory: Positive: Cough Cardiovascular: Positive: Negative Gastrointestinal: Positive: Negative Motor: Positive: Negative Neurovascular: Positive: Negative Musculoskeletal: Positive: Negative Neurological: Positive: Negative Psychological: Positive: Negative Is Patient Immunocompromised?: No Physical Exam Triage Information Reviewed: Yes Appearance: No Pain Distress, Well-Nourished, Ill-Appearing - MILD Vital Signs: Initial Vital Signs Temp 98.4 F 02/17/19 11:30 Pulse 68 02/17/19 11:30 Resp 16 02/17/19 11:30 BP 129/79 02/17/19 11:30 Pulse Ox 100 02/17/19 11:30 Vital Signs Reviewed: Yes Eye Exam: Normal Eyes: Positive: Conjunctiva Clear ENT: Positive: Pharyngeal erythema, Nasal congestion, Nasal drainage, TM red - RT WITH TUBE IN PLACE Neck: Positive: Supple Respiratory: Positive: Lungs clear, Normal breath sounds, No respiratory distress Cardiovascular: Positive: RRR Musculoskeletal: Positive: Strength Intact, ROM Intact Neurological: Positive: Alert, Muscle Tone Normal Psychological: Positive: Age Appropriate Behavior Skin Exam: Normal Throat Pain/Nasal Course/Dx - Differential Dx/Diagnosis Provider Diagnosis: Sinusitis Discharge ED - Sign-Out/Discharge Documenting (check all that apply): Patient Departure All imaging exams completed and their final reports reviewed: No Studies - Discharge Plan Condition: Stable Disposition: HOME Prescriptions: Amoxicillin/Clavulanate TAB* [Augmentin TAB 875*] 875 mg PO BID #20 tab Patient Education Materials: Sinusitis (ED) Forms: *Work Release Referrals: Chery Andersen MD [Primary Care Provider] - Additional Instructions: FOLLOW UP WITH YOUR DOCTOR IF NOT COMPLETELY IMPROVED. GET REEVALUATED SOONER IF NOT IMPROVING OR WORSE OR ANY QUESTIONS OR CONCERNS. - Billing Disposition and Condition Condition: STABLE Disposition: Home
== END 2019-02-17 12:58 | disposition home or self-care (01) ==
LOC: UCCORT 10:37
DX: J32.9 Chronic sinusitis, unspecified (principal); R05 Cough; J02.9 Acute pharyngitis, unspecified; J45.909 Unspecified asthma, uncomplicated; Z87.891 Personal history of nicotine dependence
CPT/HCPCS: 99212; G0463